=== PATIENT | female | born 1940 | race Caucasian/White ===

== ENCOUNTER 2019-02-20 06:48 | Day surgery (SDC) | payer OTHER ==
--- NOTE | 2019-02-19 14:50 | RAD REPORT ---
EXAM DESCRIPTION: RAD - Chest Pa And Lat (2 Views) - 02/19/2019 2:44 pm CLINICAL HISTORY: Preop chest, pending cardiac catheterization COMPARISON: January 2018 TECHNIQUE: PA and lateral views of the chest were obtained. FINDINGS: The lungs are clear of an acute infiltrate, mass or failure finding. Interstitial pattern matches the comparison. Heart size is normal and central vasculature is within normal limits. No p leural effusion or pneumothorax seen. No acute bone finding. A 40% compression fracture midthoracic spine matches the prior study as well. No aortic abnormality. IMPRESSION: No acute cardiopulmonary process. No significant change from comparison.
[2019-02-19 16:16] LABS: Absolute Lymphocytes (CBC) 1.5 K/uL (0.7-4.9); Absolute Monocytes 0.5 K/uL (0.1-1.3); Basophils % 0.6 % (0-1.3); Eosinophils % 1.5 % (0-4.4); Hematocrit 39.4 % (36.0-45.0); Lymphocytes % 21.1 % (15.3-44.8); MPV 10.3 fL (7.6-11.3); RBC Red Blood Cell Count 4.26 M/uL (3.86-4.86)
[2019-02-19 16:18] LABS: Protime INR 1.04
[2019-02-19 16:28] LABS: Potassium 3.7 mmol/L (3.5-5.1)
[2019-02-20] MEDS ORDERED: NA CHLORIDE 0.9% 500 ML ONE (07:32)
[2019-02-20] MEDS ORDERED: HEPA 1000U/500MLS 1,000 UNIT/500 ML BAG IV ONE (08:39)
[2019-02-20] MEDS ORDERED: LIDOCAINE 1% MPF 30 ML VIAL ONE (08:39)
[2019-02-20] MEDS ORDERED: MIDAZOLAM HCL 2 MG/2 ML INJ ONE ×2 (08:59→09:17)
[2019-02-20] MEDS ORDERED: FENTANYL CITR 100 MCG/2 ML ONE (08:59)
[2019-02-20] MEDS ORDERED: ATROPINE SULF 1 MG/10 ML SYR IV ONE (09:00)
[2019-02-20] MEDS ORDERED: NA CHLORIDE 0.9% 0 ML ONE (09:00)
[2019-02-20] MEDS ORDERED: NITROGLYCERIN 100 MCG/ML SYR (for cath lab use only) IV ONE (09:13)
[2019-02-20] MEDS ORDERED: NITROGLYCERIN/D5W 25 MG/250 ML BTL IV ONE (09:14)
[2019-02-20 10:05] VITALS: TEMP 97.1
[2019-02-20 11:38] VITALS: BP 144/75; O2SAT 97
--- NOTE | 2019-02-20 18:16 | OP ---
Surgeon: Marcelino Pitts MD Dish Technician: Renetta Garcia. History: Ms. Olvera is an 78-year-old woman, has a history of diabetes, hypertension, dyslipidemi a, family history of heart disease, chest pain, and abnormal EKG. Admitted as an outpatient to the c ath lab today, 02/20/2019. Procedures: Left heart catheterization selective coronary arteriogram. Indication: Unstable angina. Procedure Description: The patient was prepped and draped in the routine sterile fashion, given 2 mg of Versed for IV sedation. A 6-Azeri sheath introduced in the right common femoral artery. StarCl ose was used to close the case. Marialuisa catheter was used to do the angiogram angiography. She was found to have a normal LAD, and normal RCA which was small and nondominant. Her blood vessels were v doug tortuous everywhere. She had a 20% circumflex stenosis, which was a left dominant system. No co mplications. Blood Loss: 5 cc. Postoperative Diagnosis: Mild coronary artery disease. Plan: Medical therapy. Anesthesia: Total conscious sedation was 30 minutes. DEANNA/REINIER Voice ID: [id number] Report ID: [id number]
== END 2019-02-20 11:50 | disposition home health service (06) ==
LOC: CCL 06:48
DX: I25.110 Atherosclerotic heart disease of native coronary artery with unstable angina pectoris (principal); I10 Essential (primary) hypertension; E78.5 Hyperlipidemia, unspecified; E78.6 Lipoprotein deficiency; E11.9 Type 2 diabetes mellitus without complications; Z82.49 Family history of ischemic heart disease and other diseases of the circulatory system
CPT/HCPCS: 85025; 80048; 36415; 85610; 82962 ×2; 85730; 71046; 93454; C1893; J2250 ×2; J3010; J0583

== ENCOUNTER 2020-09-22 07:07 | Day surgery (SDC) | payer OTHER ==
--- NOTE | 2020-09-17 12:57 | RAD REPORT ---
EXAM DESCRIPTION: RAD - Chest Pa And Lat (2 Views) - 09/17/2020 12:50 pm CLINICAL HISTORY: preop Chest pain. COMPARISON: Chest Pa And Lat (2 Views) dated 02/19/2019; Chest Pa And Lat (2 Views) dated 01/17/2018; C hest Pa And Lat (2 Views) dated 03/24/2017; Chest Pa And Lat (2 Views) dated 02/24/2017 FINDINGS: The lungs are clear. The heart is upper limit of normal in size. No displaced fractures. IMPRESSION: No acute or concerning finding suspected.
[2020-09-17 13:08] LABS: Absolute Lymphocytes (CBC) 2.3 K/uL (0.7-4.9); Basophils % 0.8 % (0-1.3); Hematocrit 39.7 % (36.0-45.0); Lymphocytes % 27.6 % (15.3-44.8); MPV 9.7 fL (7.6-11.3); RBC Red Blood Cell Count 4.38 M/uL (3.86-4.86)
[2020-09-17 13:11] LABS: Protime INR 0.97
[2020-09-17 14:02] LABS: ALT/SGPT 29 U/L (12-78); AST/SGOT 19 U/L (15-37); Albumin 3.9 g/dL (3.4-5.0); Alkaline Phosphatase 98 U/L (45-117); Amylase 72 U/L (25-115); BUN Blood Urea Nitrogen 26 mg/dL (7-18); Bicarbonate 31 mmol/L (21-32); Bilirubin Direct < 0.1 mg/dL (0-0.2); Bilirubin Total 0.3 mg/dL (0.2-1.0); Glucose Level 82 mg/dL (74-106); Lipase 103 U/L (73-393); Potassium 4.1 mmol/L (3.5-5.1); Protein, Total 8.4 g/dL (6.4-8.2); Sodium Level 140 mmol/L (136-145)
--- NOTE | 2020-09-17 17:31 | EKG ---
Test Date: 2020-09-17 Test Time: 12:20:27 Petroleum Engineer: NELY MEASUREMENT RESULTS: Intervals: Rate: 76 HI: 242 QRSD: 74 QT: 398 QTc: 447 [place]: P: 78 HI: 242 QRS: 4 T: 22 INTERPRETIVE STATEMENTS: Sinus rhythm with 1st degree AV block Possible Inferior infarct, age undetermined Abnormal ECG Compared to ECG 01/13/2017 11:47:19 Myocardial infarct finding now present Electronically Signed On 09-17-20 17:31:16 LEGAL SECRETARY by Marcelino Pitts
[2020-09-22] MEDS ORDERED: FENTANYL CITR 100 MCG/2 ML ONE ×2 (07:39→09:28)
[2020-09-22] MEDS ORDERED: LIDOCAINE 2% MPF 5 ML VIAL ONE (07:39)
[2020-09-22] MEDS ORDERED: ROCURONIUM 50 MG/5 ML VIAL IV ONE (07:39)
[2020-09-22] MEDS ORDERED: dexAMETHasone 10 MG/ML VIAL ONE (07:39)
[2020-09-22] MEDS ORDERED: propofoL 200 MG/20 ML VIAL IV ONE (07:39)
[2020-09-22] MEDS ORDERED: ONDANSETRON 4 MG/2 ML VIAL ONE (07:40)
[2020-09-22] MEDS ORDERED: NA CHLORIDE 0.9% 1,000 ML ONE (07:46)
[2020-09-22] MEDS ORDERED: CEFAZOLIN/SWI 2gm 0 GM/0 ML SYR ONE (07:46)
[2020-09-22] MEDS ORDERED: SCOPOLAMINE HYDROBROMIDE PATCH TD ONE (07:47)
[2020-09-22] MEDS ORDERED: NA CHLORIDE 0.9% 100 ML IV ONE (08:00)
[2020-09-22] MEDS ORDERED: VASOPRESSIN 20 UNIT/ML VIAL ONE (08:00)
[2020-09-22] MEDS ORDERED: CEFAZOLIN/SWI 1gm 1 GM/10 ML SYR ONE (08:08)
[2020-09-22] MEDS ORDERED: CEFOXITIN/SWI 1gm 1 GM/10 ML SYR ONE (08:13)
[2020-09-22] MEDS ORDERED: CEFAZOLIN SODIUM 1 GM/VIAL ONE (08:43)
[2020-09-22] MEDS ORDERED: EPHEDRINE SULF 50 MG/ML VIAL ONE (09:12)
--- NOTE | 2020-09-22 10:02 | P.BOP ---
Preoperative diagnosis: RUQ abd pain, biliary dyskinesia Postoperative diagnosis: same plus umbilical hernia Primary procedure: 1. Laparoscopic cholecystectomy Secondary procedure: 2. Open repair umbilical hernia Estimated blood loss: <10cc Specimen: gb, hernia sac Findings: SEE Dr Lockhart note for her procedure Anesthesia: General Complications: None Transferred to: Recovery Room Condition: Good
[2020-09-22 10:22] VITALS: O2SAT 96
[2020-09-22] MEDS ORDERED: NORCO 5/325mg (4 TAB for ER Dispense) PO ONE (11:25)
[2020-09-22 11:36] VITALS: BP 136/65; TEMP 96.6
[2020-09-22] MEDS ORDERED: HYDROCODONE/APAP 5/325 MG TAB ONE (11:38)
--- NOTE | 2020-09-22 13:08 | OP ---
Date of Procedure: 09/22/2020 Surgeon: Sonido Apodaca MD Preoperative Diagnoses: Right upper quadrant abdominal pain, biliary dyskinesia. Postoperative Diagnoses: Right upper quadrant abdominal pain, biliary dyskinesia, umbilical hernia. Procedures: 1.Laparoscopic cholecystectomy. 2.Open repair of umbilical hernia. Anesthesia: General plus local. Specimen: Gallbladder and hernia sac. Findings: As above. The patient had distended gallbladder. The patient also has incarcerated oment um and hernia sac. Dr. Lockhart did the procedure this morning on her. Please refer to her note for details in that case. Indications For Procedure: This case of a female comes to us with 2 problems; one gynecological, one general surgery. Dr. Lockhart is taking care of the gynecological part. Please see her notes. For the surgical standpoint, the patient is having pain every time she eats and diagnosed with biliary d yskinesia. She is trying to modify her diet, has not been able to help, so she came to my office for cholecystectomy as advised also by her medical doctors, but at the same time she wants to have some procedure done with Dr. 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 I have no problems. Dr. Lockhart wants to go first. My part was explained to her laparoscopic possi ble open cholecystectomy with benefits, alternatives, and risks included but not limited to infection , bleeding, damage to adjacent structures as complication recurrence of pain, NM, even . She al so understands this may not relieve symptoms. She might need more than one surgical intervention. S he understood and signed a consent. Procedure In Detail: The patient was brought to the operating room. Dr. Lockhart proceeded to be in the room with . Please refer to notes. When Dr. Lockhart finished her procedure, then robin singer called me in the room. We did a time-out once again. We re-scrubbed everything again in the abd omen in the usual sterile fashion. A time-out was called once again and we proceeded then to make an incision in the umbilical region. Incision was carried down to fascia, which was opened under direc t vision. When we opened the fascia, we noted this patient to have an umbilical hernia with incarcer ated omentum that was carefully released from adhesions from the hernia sac and the hernia sac was re moved. At that moment, I put Vicryl #1 inside the fascia, Rosita trocar was carefully introduced, an d pneumoperitoneum was obtained. I placed 3 more trocars under direct visualization in the right upp er quadrant, 5 mm each one of them. I placed a grasper in the fundus of the gallbladder and another grasper in the infundibulum retracting the gallbladder in the inferolateral fashion exposing the tria ngle of Calot obtaining critical view. Cystic duct and cystic artery were clearly isolated free circ umferentially and a connection between those and the gallbladder was clearly identified. I proceeded to ligate those by using at least 3 clips proximal, 1 clip distal, and ligation in the middle. Same was done with the cystic artery. A small tiny branch of the cystic artery going to the gallbladder was carefully isolated and also ligated using the same technique. Hepatic arteries and common bile d uct were protected at all times. After that, I removed the gallbladder from liver using Bovie cauter izer and removed from the abdominal cavity using an EndoCatch through the umbilical incision. The ar ea was inspected once again. No bile leak, no bleeding. Previous clips were intact with no bleeding . At that moment, I proceeded to remove the trocars under direct vision and deflated the pneumoperit oneum. Closed the fascia and umbilical hernia with #1 Vicryl. Irrigated the subcutaneous tissue, cl osed that with 3-0 chromic and skin in a subcuticular fashion with 3-0 chromic and Steri-Strips on to p. Sponge count and instrument counts correct. The patient tolerated the procedure well. The patie nt was sent to Recovery in stable condition. HM/MODL Voice ID: [id number] Report ID: [id number]
--- NOTE | 2020-09-22 13:11 | DS ---
This discharge summary is from the General Surgery standpoint. Please refer to Dr. Lockhart's notes for the discharge instruction from the gynecological procedure. Discharge Instructions: From the general surgery standpoint, the patient was advised to keep the are a dry for 48 hours, then may shower. Keep Steri-Strips intact. Plan: Follow up in my office in 1 week. Call for appointment [phone]. Medications: Cipro 500 p.o. b.i.d. and also Tylenol No. 3 q.4 hours p.r.n. pain. Due to florin magana es, we have to do e-prescription for the narcotics and we are in the process of doing that. Keep are a dry for 48 hours, then may shower. FRNACINE/REINIER Voice ID: [id number] Report ID: [id number]
--- NOTE | 2020-09-27 02:17 | OP ---
Date of Procedure: 09/22/2020 Surgeon: Kay Lockhart MD Chef Assistant: Lizzy Brown. Preoperative Diagnosis: Overactive bladder, stress urinary incontinence. Postoperative Diagnosis: Overactive bladder, stress urinary incontinence. Procedures Performed: Mid urethral sling (TVT) cystoscopy. Anesthesia: General endotracheal. Specimens: None. Complications: None. Estimated Blood Loss: Minimal. Condition: Stable patient. Findings: Hypermobile urethra. No bladder stones or masses, stones, or diverticula on cystoscopy. No evidence of any trauma to the bladder either. There was an anterior wall and posterior wall defec ts to a small degree. Brief History And Physical: The patient is an 79-year-old patient, who has been my patient for a few years, has been treated for overactive bladder with conservative management, has done well for some years and then her stress urinary incontinence has gotten worse to the point that her incontinence is extremely bothersome to her. She has been clearly explained about the difference in overactive blad gerald and stress urinary incontinence, which came from her hypermobile urethra on urodynamic testing. This was documented and clearly explained to the patient and her multiple times to make sure that they understood that the stress part of the surgery is the only one that can be fixed with a mid urethral sling, that there could be also 50% of the time resolution or significant improvement in ov eractive bladder when stress incontinence is corrected; however, this is not a guarantee and that she would continue to need more treatments for her overactive bladder if her incontinence has not improv ed to her satisfactory level. She consented. We discussed about the alternative options of incontinence pessary, pelvic floor musc le therapy in combination with it or alone and she wanted to proceed with surgical repair. At this t [facility], patient also is undergoing laparoscopic cholecystectomy by Dr. Apodaca, so this was coordinated together, so I did the procedure first. Description Of Procedure: Patient was placed in a dorsal lithotomy position. Vulva, vagina, and per ineum were prepped and draped in a sterile fashion. Alonzo was placed in the bladder. 2 g of Ancef w ere given and Alonzo was retracted superiorly to identify the urethra in the mid urethral area. Two A llis clamps were placed and injected with dilute vasopressin in the center and on both sides. Patien t was placed in high lithotomy position. 1 cm mid urethral incision made with the help of a 15 blade and dissection was carried underneath the connective tissue pointing at the ipsilateral shoulder tow ards the ipsilateral obturator space hugging the inferior pubic ramus at a 40-degree angle to the hor izontal and vertical planes. Once I got into the membrane and perforated it, track was created as th e scissors were pulled back. Similar dissection performed on the left side as well. The wing guide was placed and the plastic dilator with the spike inside were guided through to the obturator membran e and perforating through this. Needle was hugged along the inferior pubic ramus and exited 1 cm lat eral to the groin fold about 2 cm superior to the level of the horizontal line dropped at the level o f the external urethral meatus. Then, I was able to bring the spike out. Plastic dilator pulled out . Plastic sheath and mesh were held with a Carmen and dilator was cut. Then, opposite side pass was taken with the wing guide, passed into the obturator space, and guide removed and dilator passed and exited to the point symmetric to the opposite side. The plastic dilator was cut out and the mesh and graft were held with a Carmen in the mid urethral area. This was irrigated with antibiotic solution and sling tension with the help of the scissors in the midline. Then, sheath was pulled out and mesh was left in place. Excellent tensioning was present. Thorough irrigation was performed. Then, ja sure with 3-0 Vicryl in a continuous running locked fashion in the mid urethral area. Then, the skin incisions closed with the help of skin clips. Alonzo was removed. Cystoscopy was performed with a 1 7-Pashto sheath, 30-degree lens, and normal saline. Excellent jets of urine from both ureteric orifi les area of the trigone area above the trigone and down the lateral chandra were all well visualized. No evidence of any tumors, diverticula, or stones. There was no evidence of any trauma from the mike t and there was no foreign body in the bladder. The urethroscopy was performed and once all the blad gerald was drained, Alonzo was left in place and all the patient's legs were anesthetized. All the drape s were removed. Instrument, needle, and sponge counts were correct. EBL was minimal. Patient rod ated the procedure well. She was left anesthetized for Dr. Paulie's to continue his procedure afte r prepping the abdomen again and repositioning the patient in a supine fashion. She will get bladder voiding trial and will be discharged home after that. TONY Voice ID: [id number] Report ID: [id number]
== END 2020-09-22 13:50 | disposition home or self-care (01) ==
LOC: OR 07:07
PROVIDERS: ATTEND Surgery
PROC: 0TSD0ZZ Reposition Urethra, Open Approach (ICD-10-PCS; 2020-09-22)
PROC: 0FT44ZZ Resection of Gallbladder, Percutaneous Endoscopic Approach (ICD-10-PCS; principal; 2020-09-22 08:00)
PROC: 0WQF4ZZ Repair Abdominal Wall, Percutaneous Endoscopic Approach (ICD-10-PCS; 2020-09-22 08:00)
DX: K81.1 Chronic cholecystitis (principal); K42.9 Umbilical hernia without obstruction or gangrene; N39.3 Stress incontinence (female) (male); N32.81 Overactive bladder; Z20.822 Contact with and (suspected) exposure to COVID-19
CPT/HCPCS: 47562; 49653; 93005; 85025; 80048; 36415; 82150; 86900; 86850; 85610; 86901; 82947 ×2; 80076; 88302; 88304; 85730; 83690; 71046; 57288; U0002; J2704; J3010 ×2; J1100; J0690 ×2; J7030; J2405

== ENCOUNTER 2021-02-22 10:53 | Emergency (ER) | payer OTHER ==
[2021-02-22] MEDS ORDERED: ONDANSETRON 4 MG/2 ML VIAL ONE (11:28)
[2021-02-22] MEDS ORDERED: NA CHLORIDE 0.9% 500 ML ONE (11:28)
[2021-02-22 11:44] LABS: Basophils % 0.6 % (0-1.3); MPV 9.9 fL (7.6-11.3); RBC Red Blood Cell Count 4.51 M/uL (3.86-4.86)
[2021-02-22 11:58] LABS: Albumin 3.5 g/dL (3.4-5.0); Bilirubin Direct 0.1 mg/dL (0-0.2); Bilirubin Total 0.5 mg/dL (0.2-1.0); Potassium 3.7 mmol/L (3.5-5.1); Protein, Total 7.7 g/dL (6.4-8.2)
--- NOTE | 2021-02-22 12:54 | RAD REPORT ---
EXAM DESCRIPTION: CTAbdomen Pelvis W Contrast - 02/22/2021 12:28 pm CLINICAL HISTORY: Abdominal pain. ABD PAIN COMPARISON: Abdomen Pelvis W Contrast dated 11/21/2017 TECHNIQUE: Biphasic CT imaging of the abdomen and pelvis was performed with 100 ml non-ionic IV cont rast. All CT scans are performed using dose optimization technique as appropriate and may include automated exposure control or mA/KV adjustment according to patient size. FINDINGS: The lung bases are clear.Small hiatal hernia. Mild diffuse fatty liver is present. Cholecystectomy clips. The spleen, pancreas, adrenal glands and kidneys are within normal limits. No bowel obstruction, free air, free fluid or abscess. Sigmoid diverticulosis coli is present without diverticulitis. The appendix is not identified as a discrete structure, however, no secondary findin gs of appendicitis are identified. No evidence of significant lymphadenopathy. No suspicious bony findings. IMPRESSION: No acute intra-abdominal or pelvic finding. Mild diffuse fatty liver. Prominent sigmoid diverticulosis coli without diverticulitis.
--- NOTE | 2021-02-22 13:14 | ER ---
Nurse's Notes [facility] Name: Maryann Olvera Age: 80 yrs Sex: Female : 1940 Arrival Date: 02/22/2021 Time: 11:00 Bed 8 Private MD: Diagnosis: Generalized abdominal pain Presentation: 02/22 10:51 Initial Sepsis Screen: Does the patient meet any 2 criteria? No. Patient's initial rb3 sepsis screen is negative. Does the patient have a suspected source of infection? Yes: Acute abdominal pain. Risk Assessment: Do you want to hurt yourself or someone else? Patient reports no desire to harm self or others. 10:51 Acuity: AMINA 3 rb3 11:00 Chief complaint: Patient states: Abd with N/V continues since last night. Has been ll1 seeing Dr. Dc for this recently. No fever. EMS states: Initial BP 95 systolic, raised to 116 systolic after IV fluid bolus. + orthostatic. Fingerstick 233. No fever. Family reported an episode of twitching/possible seizure that lasted a few minutes before EMS arrived, EMS saw no twitching/shaking. EKG showed 1st degree AV block. Pinpoint pupils for EMS. States she took her pain medication last night, but vomited afterwards. Coronavirus screen: Client denies travel out of the [place] in the last 14 days. At this time, the client does not indicate any symptoms associated with coronavirus-19. Ebola Screen: Patient denies travel to an Ebola-affected area in the 21 days before illness onset. Risk Assessment: Do you want to hurt yourself or someone else? Patient reports no desire to harm self or others. Onset of symptoms was February 21, 2021. 11:00 Method Of Arrival: EMS: [facility] ll1 11:00 Acuity: AMINA 3 ll1 Historical: - Allergies: 11:05 exenatide; ll1 11:05 PENICILLINS; ll1 11:05 sitagliptin phosphate; ll1 - PMHx: 11:05 Diabetes - NIDDM; Hyperlipidemia; Hypertension; ll1 - PSHx: 11:05 Unable to obtain; ll1 - Immunization history:: Adult Immunizations up to date. - Social history:: Smoking status: Patient denies any tobacco usage or history of. Screenin:51 Abuse screen: Denies threats or abuse. Nutritional screening: No deficits noted. rb3 Tuberculosis screening: No symptoms or risk factors identified. Fall Risk None identified. Assessment: 10:51 General: Appears in no apparent distress. comfortable, Behavior is calm, cooperative, rb3 Denies fever. Pain: Denies pain. Neuro: Level of Consciousness is awake, alert, obeys commands, Oriented to person, place, time, situation. Cardiovascular: Patient's skin is warm and dry. Respiratory: Airway is patent Respiratory effort is even, unlabored, Respiratory pattern is regular, symmetrical. GI: Reports nausea, vomiting. : No signs and/or symptoms were reported regarding the genitourinary system. 10:51 GI: Abd is soft X 4 quads. rb3 11:50 Reassessment: Patient appears in no apparent distress at this time. No changes from rb3 previously documented assessment. 13:23 Reassessment: Patient appears in no apparent distress at this time. Patient and/or rb3 family updated on plan of care and expected duration. Pain level reassessed. Patient is alert, oriented x 3, equal unlabored respirations, skin warm/dry/pink. 13:45 Reassessment: PT. tolerated PO challenge well. rb3 14:00 Reassessment: Patient appears in no apparent distress at this time. No changes from rb3 previously documented assessment. Vital Signs: 10:51 BP 114 / 70; Pulse 84; Resp 17; Temp 98.0; Pulse Ox 100% ; Weight 71.21 kg; Height 5 rb3 ft. 3 in. (160.02 cm); Pain 0/10; 12:27 BP 112 / 57; Pulse 86; Resp 16; Temp 98.1(O); Pulse Ox 98% on R/A; mh5 13:23 BP 155 / 89; Pulse 90; Resp 17; Pulse Ox 98% ; rb3 14:00 BP 148 / 85; Pulse 83; Resp 17; Pulse Ox 99% ; rb3 10:51 Body Mass Index 27.81 (71.21 kg, 160.02 cm) rb3 ED Course: 10:51 Patient has correct armband on for positive identification. Bed in low position. Call rb3 light in reach. Side rails up X 1. Pulse ox on. NIBP on. Warm blanket given. 11:00 Patient arrived in ED. ll1 11:01 Geeta Gerard FNP-C is [facility]. kb 11:01 Mason Young MD is Attending Physician. kb 11:03 Maria D Woody, RN is Primary Nurse. rb3 11:04 Triage completed. ll1 11:04 Arm band placed on Patient placed in an exam room, on a stretcher. ll1 11:15 Maintain EMS IV. Dressing intact. Good blood return noted. Site clean \T\ dry. Gauge \T\ rb 3 site: 20 G RA. 12:28 CT Abd/Pelvis - IV Contrast Only In Process Unspecified. EDMS 14:25 No provider procedures requiring assistance completed. IV discontinued, intact, rb3 bleeding controlled, No redness/swelling at site. Pressure dressing applied. Administered Medications: 11:10 Drug: NS 0.9% 500 ml Route: IV; Rate: bolus; Site: right antecubital; rb3 11:44 Follow up: IV Status: Completed infusion rb3 16:23 Not Given (Patient Refused): Zofran (Ondansetron) 4 mg IVP once; over 2 minutes rb3 Outcome: 13:13 Discharge ordered by MD. kb 14:25 Patient left the ED. rb3 14:25 Discharged to home via wheelchair, with family. rb3 14:25 Condition: stable 14:25 Discharge instructions given to patient, Instructed on discharge instructions, follow up and referral plans. medication usage, Demonstrated understanding of instructions, follow-up care, medications, Prescriptions given X 2. Signatures: Dispatcher [employer] EDSC Geeta Gerard FNP-C FNP-Ckb Martinez, Maria [facility] Lucy Barrera RN RN ll1 Mari aD Woody, RN RN rb3
--- NOTE | 2021-02-22 13:14 | EDPHYS ---
Physician Documentation [facility] Name: Maryann Olvera Age: 80 yrs Sex: Female : 1940 Arrival Date: 02/22/2021 Time: 11:00 Bed 8 Private MD: ED Physician Mason Young HPI: 02/22 11:17 This 80 yrs old Female presents to ER via EMS with complaints of Abd Pain > kb 48 y/o. 11:17 The patient presents with abdominal pain in the right upper quadrant, right lower kb quadrant. Onset: The symptoms/episode began/occurred "several weeks ago". The symptoms do not radiate. Associated signs and symptoms: Pertinent positives: nausea and vomiting, Pertinent negatives: diarrhea, fever. The symptoms are described as constant. Modifying factors: The symptoms are alleviated by nothing, the symptoms are aggravated by nothing. Severity of pain: At its worst the pain was mild moderate in the emergency department the pain has resolved. The patient has experienced similar episodes in the past, chronically. The patient has not recently seen a physician. Pt reports she has had right abd pain for several weeks. Has had multiple tests including a CT scan with normal results. Has been seeing Dr Dc for this and the next test planned is an endoscopy. States she began vomiting last night and it continued this morning so that is what prompted today's visit. States she has had intermittent vomiting with this pain in the past. Pain resolved at this time. . Historical: - Allergies: 11:05 exenatide; ll1 11:05 PENICILLINS; ll1 11:05 sitagliptin phosphate; ll1 - PMHx: 11:05 Diabetes - NIDDM; Hyperlipidemia; Hypertension; ll1 - PSHx: 11:05 Unable to obtain; ll1 - Immunization history:: Adult Immunizations up to date. - Social history:: Smoking status: Patient denies any tobacco usage or history of. ROS: 11:16 Constitutional: Negative for fever, chills, and weight loss. kb 11:16 Abdomen/GI: Positive for abdominal pain, nausea and vomiting. 11:16 All other systems are negative. Exam: 11:16 Constitutional: This is a well developed, well nourished patient who is awake, alert, kb and in no acute distress. Head/Face: Normocephalic, atraumatic. ENT: Moist Mucous membranes Respiratory: Respirations even and unlabored. No increased work of breathing, no retractions or nasal flaring. Abdomen/GI: Soft, non-tender. No distention Skin: Warm, dry with normal turgor. Normal color. MS/ Extremity: Pulses equal, no cyanosis. Neurovascular intact. Full, normal range of motion. Neuro: Awake and alert, GCS 15, oriented to person, place, time, and situation. Moves all extremities. Normal gait. Psych: Awake, alert, with orientation to person, place and time. Behavior, mood, and affect are within normal limits. Vital Signs: 10:51 BP 114 / 70; Pulse 84; Resp 17; Temp 98.0; Pulse Ox 100% ; Weight 71.21 kg; Height 5 rb3 ft. 3 in. (160.02 cm); Pain 0/10; 12:27 BP 112 / 57; Pulse 86; Resp 16; Temp 98.1(O); Pulse Ox 98% on R/A; mh5 13:23 BP 155 / 89; Pulse 90; Resp 17; Pulse Ox 98% ; rb3 14:00 BP 148 / 85; Pulse 83; Resp 17; Pulse Ox 99% ; rb3 10:51 Body Mass Index 27.81 (71.21 kg, 160.02 cm) rb3 MDM: 11:01 Patient medically screened. kb 11:16 Data reviewed: vital signs, nurses notes. Data interpreted: Pulse oximetry: on room air kb is 100 %. Interpretation: normal. 13:13 Counseling: I had a detailed discussion with the patient and/or guardian regarding: the kb historical points, exam findings, and any diagnostic results supporting the discharge/admit diagnosis, lab results, radiology results, the need for outpatient follow up, a family practitioner, a user experience manager, to return to the emergency department if symptoms worsen or persist or if there are any questions or concerns that arise at home. 02/22 11:01 Order name: Basic Metabolic Panel; Complete Time: 12:01 kb 02/22 11:01 Order name: CBC with Diff; Complete Time: 11:46 kb 02/22 11:01 Order name: Hepatic Function; Complete Time: 12:01 kb 02/22 11:01 Order name: Lipase; Complete Time: 12:01 kb 02/22 12:10 Order name: CT Abd/Pelvis - IV Contrast Only; Complete Time: 12:57 kb 02/22 11:01 Order name: IV Saline Lock; Complete Time: 11:15 kb 02/22 11:01 Order name: Labs collected and sent; Complete Time: 11:31 kb 02/22 12:57 Order name: PO challenge; Complete Time: 13:21 kb Administered Medications: 11:10 Drug: NS 0.9% 500 ml Route: IV; Rate: bolus; Site: right antecubital; rb3 11:44 Follow up: IV Status: Completed infusion rb3 16:23 Not Given (Patient Refused): Zofran (Ondansetron) 4 mg IVP once; over 2 minutes rb3 Disposition: 15:18 Co-signature as Attending Physician, Mason Young MD. rn Disposition: 02/22/21 13:13 Discharged to Home. Impression: Generalized abdominal pain. - Condition is Stable. - Discharge Instructions: Abdominal Pain, Adult, [id number]. - Prescriptions for Bentyl 20 mg Oral Tablet - take 1 tablet by ORAL route every 6 hours As needed; 20 tablet. Zofran 4 mg Oral Tablet - take 1 tablet by ORAL route every 6 hours As needed; 20 tablet. - Medication Reconciliation Form, Thank You Letter, Antibiotic Education, Prescription Opioid Use form. - Follow up: Emergency Department; When: As needed; Reason: Worsening of condition. Follow up: Private Physician; When: 2 - 3 days; Reason: Recheck today's complaints, Continuance of care, Re-evaluation by your physician. Signatures: Dispatcher [employer] EDTN Geeta Gerard, CRYPTOZOOLOGIST-C CRYPTOZOOLOGIST-Ckb Mason Young MD MD rn Lewis, Lynsay, RN RN ll1 Maria D Woody RN RN rb3 Corrections: (The following items were deleted from the chart) 14:25 13:13 02/22/2021 13:13 Discharged to Home. Impression: Generalized abdominal pain. rb3 Condition is Stable. Forms are Medication Reconciliation Form, Thank You Letter, Antibiotic Education, Prescription Opioid Use. Follow up: Emergency Department; When: As needed; Reason: Worsening of condition. Follow up: Private Physician; When: 2 - 3 days; Reason: Recheck today's complaints, Continuance of care, Re-evaluation by your physician. kb
[2021-02-22 14:29] VITALS: TEMP 98.1; O2SAT 98
[2021-02-22 14:30] VITALS: BP 155/89
== END 2021-02-22 14:25 | disposition home or self-care (01) ==
LOC: ER 10:53
DX: R10.84 Generalized abdominal pain (principal); I10 Essential (primary) hypertension; Z88.0 Allergy status to penicillin; Z88.8 Allergy status to other drugs, medicaments and biological substances
CPT/HCPCS: 85025; 80048; 36415; 80076; 83690; 74177; Q9967; J7040; 96360; 99284; J2405

== ENCOUNTER 2022-03-25 14:32 | Observation (INO) | payer OTHER ==
[2022-03-25 15:07] LABS: Absolute Lymphocytes (CBC) 0.6 K/uL (0.7-4.9); Hematocrit 39.8 % (36.0-45.0); Lymphocytes % 7.3 % (15.3-44.8); MCV 91.9 fL (80-100); MPV 8.5 fL (7.6-11.3); RBC Red Blood Cell Count 4.33 M/uL (3.86-4.86)
[2022-03-25 15:10] LABS: Protime INR 1.09
--- NOTE | 2022-03-25 15:19 | RAD REPORT ---
EXAM DESCRIPTION: RAD - Chest Single View - 03/25/2022 3:11 pm CLINICAL HISTORY: syncope Chest pain. COMPARISON: Chest Pa And Lat (2 Views) dated 09/17/2020; Chest Pa And Lat (2 Views) dated 02/19/2019; C hest Pa And Lat (2 Views) dated 01/17/2018; Chest Pa And Lat (2 Views) dated 03/24/2017 FINDINGS: Portable technique limits examination quality. The lungs are grossly clear. The heart is normal in size. No displaced fractures. IMPRESSION: No acute intrathoracic process suspected.
[2022-03-25 15:29] LABS: Albumin 3.3 g/dL (3.4-5.0); Bilirubin Direct 0.1 mg/dL (0-0.2); Bilirubin Total 0.3 mg/dL (0.2-1.0); Magnesium 1.9 mg/dL (1.8-2.4); Potassium 4.1 mmol/L (3.5-5.1); Protein, Total 6.8 g/dL (6.4-8.2); Troponin High Sensitivity 11.6 pg/mL (<58.9)
[2022-03-25] MEDS ORDERED: NA CHLORIDE 0.9% 250 ML ONE (16:28)
--- NOTE | 2022-03-25 17:54 | RAD REPORT ---
EXAM DESCRIPTION: CT - Head Brain Wo Cont - 03/25/2022 5:47 pm CLINICAL HISTORY: syncope Headache, drowsiness COMPARISON: SINUS W O CONTRAST dated 09/24/2014 TECHNIQUE: All CT scans are performed using dose optimization technique as appropriate and may inclu de automated exposure control or mA/KV adjustment according to patient size. FINDINGS: No intracranial hemorrhage, hydrocephalus or extra-axial fluid collection.Mild generalized brain atrophy is present with mild periventricular and deep white matter chronic microvascular ische kalina changes.No areas of brain edema or evidence of midline shift. The paranasal sinuses and mastoids are clear. The calvarium is intact. Mild vertebral atherosclerosis . IMPRESSION: No acute intracranial abnormality.
--- NOTE | 2022-03-25 18:19 | EDPHYS ---
Physician Documentation [facility] Name: Maryann Olvera Age: 81 yrs Sex: Female : 1940 Arrival Date: 03/25/2022 Time: 14:34 Bed 23 Private MD: ED Physician Humza Daugherty HPI: 03/25 14:40 This 81 yrs old Female presents to ER via EMS with complaints of Syncope. cp 14:40 The patient has experienced syncope, collapsed. Onset: The symptoms/episode cp began/occurred just prior to arrival. Duration: This was a single episode, that lasted an unknown period of time. Context: occurred at home, occurred while the patient was walking, Just prior to the episode the patient experienced vomiting. 14:40 Associated injury: The patient did not suffer any apparent associated injury. cp 14:40 Associated signs and symptoms: Pertinent negatives: abdominal pain, chest pain, cp headache. Current symptoms: Currently, the patient is not experiencing any symptoms, the patient feels back to baseline. Historical: - Allergies: 14:39 exenatide; bp 14:39 PENICILLINS; bp 14:39 sitagliptin phosphate; bp - Home Meds: 14:39 Metformin Oral [Active]; losartan oral [Active]; bp - PMHx: 14:39 Diabetes - NIDDM; Hyperlipidemia; Hypertension; bp - Immunization history:: Adult Immunizations up to date. - Social history:: Smoking status: Patient denies any tobacco usage or history of. ROS: 14:45 Constitutional: Negative for body aches, chills, fever, poor PO intake. cp 14:45 Cardiovascular: Negative for chest pain, edema, palpitations. cp 14:45 Respiratory: Negative for cough, shortness of breath, wheezing. 14:45 Abdomen/GI: Positive for nausea and vomiting, Negative for diarrhea, constipation, black/tarry stool, rectal bleeding. 14:45 Neuro: Positive for syncope, weakness, Negative for altered mental status, dizziness, headache. 14:45 Eyes: Negative for injury, pain, redness, and discharge. cp 14:45 ENT: Negative for drainage from ear(s), ear pain, sore throat, difficulty swallowing, difficulty handling secretions. 14:45 All other systems are negative. cp Exam: 14:50 Constitutional: The patient appears in no acute distress, alert, awake, cp non-diaphoretic, non-toxic, well developed, well nourished. 14:50 Head/Face: Normocephalic, atraumatic. cp 14:50 Eyes: Periorbital structures: appear normal, Pupils: equal, round, and reactive to light and accomodation, Extraocular movements: intact throughout, Conjunctiva: normal, no exudate, no injection, Sclera: no appreciated abnormality, Lids and lashes: appear normal, bilaterally. 14:50 ENT: External ear(s): are unremarkable, Nose: is normal, Mouth: Lips: moist, Oral mucosa: pink and intact, moist, Posterior pharynx: Airway: no evidence of obstruction, patent. 14:50 Neck: ROM/movement: is normal, is supple, without pain, no range of motions limitations. 14:50 Chest/axilla: Inspection: normal, Palpation: is normal, no crepitus, no tenderness. cp 14:50 Cardiovascular: Rate: normal, Rhythm: regular, Edema: is not appreciated, JVD: is not cp appreciated. 14:50 Respiratory: the patient does not display signs of respiratory distress, Respirations: normal, no use of accessory muscles, no retractions, labored breathing, is not present, Breath sounds: are clear throughout, no decreased breath sounds, no stridor, no wheezing. 14:50 Abdomen/GI: Inspection: abdomen appears normal, Bowel sounds: active, all quadrants, Palpation: abdomen is soft and non-tender, in all quadrants. 14:50 Back: pain, is absent, ROM is normal. 14:50 Neuro: Orientation: to person, place \\T\\ time. Mentation: is normal, Motor: moves all fours, strength is normal, Sensation: is normal. 15:30 ECG was reviewed by the Attending Physician. cp Vital Signs: 14:34 BP 128 / 86; Pulse 92; Resp 16; Temp 98.6; Pulse Ox 97% ; bp 15:24 BP 127 / 46; Pulse 100; Resp 16; Pulse Ox 94% ; bp 16:27 Pulse 100; Resp 17; Pulse Ox 92% ; bp 16:27 PT REFUSED BP MEASUREMENT "IT'S TOO TIGHT" bp MDM: 14:41 Patient medically screened. cp 15:00 Differential Diagnosis: aortic aneurysm, cardiac arrhythmia, cerebrovascular accident, cp drug effect, GI bleed, idiopathic syncope, seizure, vasovagal episode. 18:15 Data reviewed: vital signs, nurses notes, lab test result(s), EKG, radiologic studies, cp CT scan, plain films. 18:15 Test interpretation: by ED physician or midlevel provider: ECG, plain radiologic cp studies. Counseling: I had a detailed discussion with the patient and/or guardian regarding: the historical points, exam findings, and any diagnostic results supporting the discharge/admit diagnosis, lab results, radiology results, the need for further work-up and treatment in the hospital. 18:30 Physician consultation: Mitchell Shrestha MD was called at 18:31, left message on voicemail. 03/25 14:36 Order name: Basic Metabolic Panel; Complete Time: 16:02 03/25 16:02 Interpretation: Normal except: GLUC 139; BUN 24; GFR 45. 03/25 14:36 Order name: CBC with Diff; Complete Time: 15:29 cp 03/25 15:29 Interpretation: Normal except: NICHOLAS% 84.0; LYM% 7.3; LYMA 0.6. 03/25 14:36 Order name: LFT's; Complete Time: 16:02 cp 03/25 16:03 Interpretation: Normal except: ALB 3.3; A/G 0.9. 03/25 14:36 Order name: Magnesium; Complete Time: 16:02 cp 03/25 14:36 Order name: NT PRO-BNP; Complete Time: 16:02 cp 03/25 14:36 Order name: PT-INR; Complete Time: 15:29 cp 03/25 14:36 Order name: Troponin HS; Complete Time: 16:02 cp 03/25 14:36 Order name: Urine Microscopic Only cp 03/25 19:37 Order name: COVID-19 SARS RT PCR (Document "Date of Onset" if Symptomatic); Complete cp Time: 23:55 03/25 23:55 Interpretation: Reviewed. 03/25 20:00 Order name: Basic Metabolic Panel EDMS 03/25 20:00 Order name: Basic Metabolic Panel EDCA 03/25 20:00 Order name: CBC with Automated Diff EDMS 03/25 20:00 Order name: CBC with Automated Diff EDCA 03/25 20:00 Order name: Troponin High Sensitivity EDCA 03/25 14:36 Order name: XRAY Chest (1 view); Complete Time: 15:29 cp 03/25 14:36 Order name: EKG; Complete Time: 14:36 cp 03/25 14:36 Order name: Cardiac monitoring; Complete Time: 16:17 cp 03/25 14:36 Order name: EKG - Nurse/Tech; Complete Time: 16:17 cp 03/25 16:13 Order name: CT Head Brain wo Cont; Complete Time: 18:06 cp 03/25 18:06 Interpretation: Report reviewed. 03/25 18:48 Order name: Diet Regular; Complete Time: 18:48 cp 03/25 20:00 Order name: Echo with Doppler EDMS 03/25 20:00 Order name: EKG Electrocardiogram EDMS 03/25 20:00 Order name: EKG Electrocardiogram EDMS 03/25 20:00 Order name: EKG Electrocardiogram EDMS 03/25 20:00 Order name: EKG Electrocardiogram EDMS 03/25 20:00 Order name: Troponin High Sensitivity; Complete Time: 23:55 EDMS 03/25 20:00 Order name: Troponin High Sensitivity EDMS 03/25 20:00 Order name: Troponin High Sensitivity EDMS 03/25 21:23 Order name: Urine Dipstick-Ancillary; Complete Time: 23:55 EDMS 03/25 14:36 Order name: IV Saline Lock; Complete Time: 14:42 cp 03/25 14:36 Order name: Labs collected and sent; Complete Time: 14:55 cp 03/25 14:36 Order name: O2 Per Protocol; Complete Time: 14:42 cp 03/25 14:36 Order name: O2 Sat Monitoring; Complete Time: 14:42 03/25 14:36 Order name: Urine Dipstick-Ancillary (obtain specimen); Complete Time: 03:29 cp 03/25 18:14 Order name: Cath; Complete Time: 03:29 cp EC:30 Rate is 98 beats/min. Rhythm is regular. CA interval is prolonged at 234 msec. QRS cp interval is normal. QT interval is normal. Interpreted by me. Reviewed by me. Administered Medications: 16:27 Drug: NS 0.9% 250 ml Route: IV; Rate: bolus; Site: right forearm; bp Disposition: 03/26 16:02 Attestation: The patient's history, exam findings, diagnostics, and a summary of any [facility] interventions or procedures was reviewed in detail with Ye ORNELAS. Disposition Summary: 03/25/22 18:18 Hospitalization Ordered Hospitalization Status: Observation cp Condition: Stable cp Problem: new cp Symptoms: have improved cp Bed/Room Type: Standard cp Provider: Mitchell Shrestha(03/25/22 18:29) cp Location: [facility] ER HOLD(03/25/22 23:52) tw5 Room Assignment: ERHOLD-(03/25/22 23:52) tw5 Diagnosis - Syncope cp - SARS-associated coronavirus as the cause of diseases classified elsewhere cp Forms: - Medication Reconciliation Form cp - SBAR form cp Signatures: Dispatcher [employer] EDMS Ye Terrell PA PA cp Jared Vicente RN RN Anyi Aiken tw5 Humza Daugherty MD MD [id number] Corrections: (The following items were deleted from the chart) 03/25 18:29 18:18 Alysha Chase cp cp 23:52 18:18 Telemetry/MedSurg (observation) [facility] 23:52 18:18 cp 5
--- NOTE | 2022-03-25 18:19 | ER ---
Nurse's Notes [facility] Name: Maryann Olvera Age: 81 yrs Sex: Female : 1940 Arrival Date: 03/25/2022 Time: 14:34 Bed 23 Private MD: Diagnosis: Syncope;SARS-associated coronavirus as the cause of diseases classified elsewhere Presentation: 03/25 14:34 Chief complaint: EMS states: SYNCOPE WITH FALL AND N/V AFTER BOWEL MOVEMENT. bp Coronavirus screen: At this time, the client does not indicate any symptoms associated with coronavirus-19. Ebola Screen: No symptoms or risks identified at this time. Initial Sepsis Screen: Does the patient meet any 2 criteria? No. Patient's initial sepsis screen is negative. Does the patient have a suspected source of infection? No. Patient's initial sepsis screen is negative. Risk Assessment: Do you want to hurt yourself or someone else? Patient reports no desire to harm self or others. Onset of symptoms was March 25, 2022 at 14:00. Care prior to arrival: IV initiated. 20 GA, in the right antecubital area, Glucose check: 114. 14:34 Method Of Arrival: EMS: [facility] bp 14:34 Acuity: AMINA 3 bp Triage Assessment: 14:39 General: Appears distressed, uncomfortable, Behavior is cooperative, appropriate for bp age, anxious. Pain: Denies pain. EENT: No deficits noted. Neuro: Reports a syncopal episode. Cardiovascular: No deficits noted. Respiratory: No deficits noted. GI: No signs and/or symptoms were reported involving the gastrointestinal system. : No signs and/or symptoms were reported regarding the genitourinary system. Derm: No deficits noted. Musculoskeletal: No deficits noted. Historical: - Allergies: 14:39 exenatide; bp 14:39 PENICILLINS; bp 14:39 sitagliptin phosphate; bp - Home Meds: 14:39 Metformin Oral [Active]; losartan oral [Active]; bp - PMHx: 14:39 Diabetes - NIDDM; Hyperlipidemia; Hypertension; bp - Immunization history:: Adult Immunizations up to date. - Social history:: Smoking status: Patient denies any tobacco usage or history of. Screenin:41 Abuse screen: Denies threats or abuse. Denies injuries from another. Nutritional bp screening: No deficits noted. Tuberculosis screening: No symptoms or risk factors identified. Fall Risk None identified. Assessment: 14:41 General: SEE TRIAGE NOTE. bp 15:24 Reassessment: No changes from previously documented assessment. Patient and/or family bp updated on plan of care and expected duration. Pain level reassessed. Vital Signs: 14:34 BP 128 / 86; Pulse 92; Resp 16; Temp 98.6; Pulse Ox 97% ; bp 15:24 BP 127 / 46; Pulse 100; Resp 16; Pulse Ox 94% ; bp 16:27 Pulse 100; Resp 17; Pulse Ox 92% ; bp 16:27 PT REFUSED BP MEASUREMENT "IT'S TOO TIGHT" bp ED Course: 14:34 Patient arrived in ED. bp 14:35 Ye Terrell PA is PHCP. cp 14:35 Humza Daugherty MD is Attending Physician. cp 14:35 Triage completed. bp 14:41 Arm band placed on. bp 14:41 Patient has correct armband on for positive identification. Bed in low position. Call bp light in reach. Side rails up X2. Adult w/ patient. 14:41 Maintain EMS IV. Dressing intact. Good blood return noted. Site clean \\T\\ dry. Gauge \\T\\ bp site: 20 GAUGE R AC. 14:55 Jared Vicente, RN is Primary Nurse. bp 15:13 XRAY Chest (1 view) In Process Unspecified. EDMS 17:48 CT Head Brain wo Cont In Process Unspecified. EDMS 18:17 Alysha Chase PA is Hospitalizing Provider. cp 18:29 Mitchell Shrestha MD is Hospitalizing Provider. cp Administered Medications: 16:27 Drug: NS 0.9% 250 ml Route: IV; Rate: bolus; Site: right forearm; bp Medication: 14:41 VIS not applicable for this client. bp Outcome: 18:18 Decision to Hospitalize by Provider. cp 03/26 10:12 Patient left the ED. jd3 Signatures: Dispatcher [employer] EDMS Ye Terrell PA PA cp Davies, Jonathon, RN RN jd3 Jared Vicente, TRUNG RN bp
[2022-03-25] MEDS ORDERED: ONDANSETRON 4 MG/2 ML VIAL IV PRN (19:56)
[2022-03-25] MEDS ORDERED: ACETAMINOPHEN 500 MG TAB PO PRN (19:56)
[2022-03-25 21:22] LABS: Urine Blood Negative (Negative); Urine Glucose Negative (Negative); Urine Protein Negative (Negative); Urine Specific Gravity 1.025 (1.005-1.030)
[2022-03-25] MEDS ORDERED: NA CHLORIDE 0.9% 1,000 ML ONE (21:44)
[2022-03-26 03:49] VITALS: O2SAT 100
[2022-03-26 05:14] LABS: Absolute Lymphocytes (CBC) 1.2 K/uL (0.7-4.9); Hematocrit 37.1 % (36.0-45.0); Lymphocytes % 20.4 % (15.3-44.8); MCV 91.6 fL (80-100); MPV 8.9 fL (7.6-11.3); RBC Red Blood Cell Count 4.05 M/uL (3.86-4.86)
[2022-03-26 05:31] LABS: Potassium 3.7 mmol/L (3.5-5.1)
[2022-03-26] MEDS ORDERED: ASPIRIN EC 81 MG TAB PO SCH (09:00)
[2022-03-26 09:43] VITALS: BP 112/78
[2022-03-26 10:17] VITALS: TEMP 98.6
--- NOTE | 2022-03-26 15:50 | P.SSS ---
Patient History Date of Service: 03/26/22 Reason for admission: WEAKNESS, PASSING OUT History of Present Illness: DOUGLAS HAS FEVER, COUGH AND PASSED OUT. SHE IS POSITIVE FOR COVID, FATIGUED AND HAS NO CHEST PAIN OR WEAKNESS. Allergies Penicillins Allergy (Verified 09/17/20 11:29) unknown exenatide [From Byetta] Adverse Reaction (Verified 09/17/20 11:29) Nausea/Vomiting sitagliptin phosphate [From Radha] Adverse Reaction (Verified 09/17/20 11:29) Nausea/Vomiting Home medications list reviewed: Yes Home Medications: Losartan/Hydrochlorothiazide [Hyzaar 100-12.5 Tablet] 1 each PO DAILY 08/16/14 Metformin HCl [Glucophage] 500 mg PO QID 08/16/14 Pravastatin Sodium [Pravachol] 40 mg PO BEDTIME 08/16/14 Ropinirole HCl [Requip] 2 mg PO BEDTIME 08/16/14 Estradiol [Estrace] 1 roman VAG PRN 01/13/17 Mirabegron [Myrbetriq] 50 mg PO BID 01/13/17 Amlodipine [Norvasc*] 5 mg PO DAILY #30 tab 01/20/17 Metoprolol Tartrate [Lopressor*] 50 mg PO BID 6AM 6PM #60 tab 01/20/17 PARoxetine HCL [Paxil*] 10 mg PO 1900 #30 tab 01/20/17 Aspirin Chewable [Aspirin Chewable*] 81 mg PO DAILY 09/17/20 Biotin 5,000 mcg PO DAILY 09/17/20 Famotidine 40 mg PO DAILY 09/17/20 Glimepiride [Amaryl] 8 mg PO DAILY 09/17/20 Insulin Glargine,Hum.rec.anlog [Basaglar Kwikpen U-100] 40 unit SQ DAILY 09/17/20 L.acidoph,Paracasei, B.lactis [Probiotic] 1 each PO DAILY 09/17/20 Magnesium Oxide [Magnesium] 250 mg PO DAILY 09/17/20 Meclizine HCl [Travel-Ease] 25 mg PO DAILY PRN 09/17/20 Methenamine/Sodium Salicylate [Azo Urinary Tract Defense Tab] 1 each PO PRN PRN 09/17/20 Mitchondrial Energy Booster 1 tab PO QID PRN 09/17/20 Pregabalin [Lyrica] 50 mg PO BID 09/17/20 Prevagen 2 tab PO DAILY 09/17/20 Triamterene/Hydrochlorothiazid [Triamterene-Hctz 37.5-25 mg Cp] 1 each PO DAILY 09/17/20 Ciprofloxacin HCl [Cipro 500 MG Tablet] 500 mg PO BID #10 tab 09/22/20 - Past Medical/Surgical History Diabetic: Yes -: Back pain with rradiculopathy -: Osteoarthritis -: DM TYPE 2 -: Hypercholesterolemia -: HTN -: Hysterectomy - Family History mom and dad -: Heart disease, Diabetes - Social History Alcohol use: No CD- Drugs: No Caffeine use: Yes Review of Systems 10-point ROS is otherwise unremarkable Physical Examination - Vital Signs Temperature: 98.6 F Blood Pressure: 112/78 Pulse: 90 Respirations: 18 Pulse Ox (%): 92 - Physical Exam General: Oriented x3, Mild distress HEENT: Atraumatic, PERRLA, Mucous membr. moist/pink, EOMI, Sclerae nonicteric Neck: Supple, 2+ carotid pulse no bruit, No LAD, Without JVD or thyroid abnormality Respiratory: Clear to auscultation bilaterally, Normal air movement Cardiovascular: Regular rate/rhythm, Normal S1 S2 Gastrointestinal: Normal bowel sounds, No tenderness Musculoskeletal: No tenderness Integumentary: No rashes Neurological: Normal gait, Normal speech, Normal strength at 5/5 x4 extr, Normal tone, Normal affect Lymphatics: No axilla or inguinal lymphadenopathy - Diagnosis (Problem(s)) (1) COVID-19 virus infection Status: Acute Plan: SHE DOES NOT HAVE RESPIRATORY DISTRESS. THERE IS NO PNEUMONIA. SHE WILL GO HOME ON PAXLOVID. I CALLED IT IN FROM OFFICE. SHE DOES NOT TAKE STATINS. - Disposition Disposition: ROUTINE DISCHARGE
--- NOTE | 2022-03-27 09:05 | EKG ---
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
--- NOTE | 2022-03-27 12:23 | CON ---
Date of Consultation: 03/26/[address] Shrestha's service with syncope. I saw the patient on 03/26/2022. History Of Present Illness: Ms. Olvera came in with syncope. She is COVID positive. She is 81 y ears old. Had an extensive past medical history and takes many medications. She does have a history of hypertension, diabetes, dyslipidemia, neuropathy, restless legs syndrome. Denies any chest pain, nausea, vomiting, diaphoresis, PND, orthopnea, pedal edema, palpitation. She just had a syncopal ep isode without being pre or postictal. Workup so far has been fairly unremarkable except for the COVI D positive. Allergies: SHE IS ALLERGIC TO PENICILLIN, EXENATIDE, AND SHE IS ALLERGIC TO SITAGLIPTIN PHOSPHATE. Medications: At home include metformin, losartan, aspirin, Norvasc, metoprolol, hydrochlorothiazide, pravastatin, Lyrica, insulin, Amaryl, and Requip. Physical Examination: Vital Signs: Stable. She was afebrile. HEENT: Negative. Neck: Supple without any bruit, lymphadenopathy, JVD, or thyromegaly. Chest: Clear to auscultation and percussion. Cardiac: Revealed a regular rhythm and rate without any murmurs, gallops, or rubs. Abdomen: Benign. Extremities: Revealed no clubbing, cyanosis, or edema. Diagnostic Data: Chest x-ray was negative. EKG was unremarkable. CT of the head was unremarkable. Impression And Plan: Syncope, most likely secondary to orthostatic hypotension and maybe COVID. I t hink Ms. Olvera needs to be hydrated well, maybe consider holding her losartan with hydrochlorothi azide for few days. I will make arrangements for her to see me in the office in the near future for workup to include event monitor and may be a carotid Doppler. Case was discussed with Dr. Shrestha. I do not think this is an acute coronary syndrome. The patient does not need to stay in the hospital. DEANNA/REINIER Voice ID: [id number] Report ID: [id number]
--- OUTSIDE RECORDS SUMMARY | 2022-04-01 06:05 | XMS REPORT | Continuity of Care Document ---
:1940 [address] [facility] t Address [address] [place] [address] [address] [place] [address] Care Team Providers Name Role Phone BrendaJovanyio Attending Clinician Unavailable Luis Alberto HAYDEN, Luigi Aragon Attending Clinician Payers Payer Name Policy Type Policy Number Effective Date Expiration Date S ource Problems Condition Condition Condition Status Onset Resolution Last Treating Co mments Source Name Details Category Date Date Treatment Clinician Date No known No known Disease [facility] active active College problems problems of Medicin e Allergies, Adverse Reactions, Alerts Allergy Allergy Status Severity Reaction(s) Onset Inactive Treating Comm ents Source Name Type Date Date Clinician Penicill Propensi Active Rash [facility] in G ty to 02-10 [place] adverse 00:00: of reaction 00 Medicin s to e drug Sitaglip Propensi Active Nausea And Ba ylor tin ty to Vomiting 02-10 [place] Phosphat adverse 00:00: of e reaction 00 Medicin s to e drug Social History Social Habit Start Date Stop Date Quantity Comments Source Sex Assigned At [facility] Co llege of Medicine Cigarettes smoked 2019-11-07 2019-11-07 [facility] current (pack per 00:00:00 00:00:00 of Medi cine day) - Reported Alcohol intake 2019-11-07 2019-11-07 Current drinker [facility] 00:00:00 00:00:00 of alcohol of Medicine (finding) Alcohol Comment 2019-11-07 2019-11-07 "glass of wine a [facility] 00:00:00 00:00:00 month" of Medicine History of tobacco 1982-10-07 Current smoker [facility] use 00:00:00 of Medicine Smoking Status Start Date Stop Date Source Former smoker 2019-11-07 00:00:00 2019-11-07 00:00:00 [facility] ollege of Medicine Medications Ordered Filled Start Stop Current Ordering Indication Dosage Frequency Signature Comments Components Source Medication Medication Date Date Medication? Clinician (SIG) Name Name aspirin EC Yes 81mg Take 81 mg B aylor 81 MG 2-26 by mouth College tablet 18:15: daily. of 36 Medicin e gabapentin 2019-0 Yes 100mg Take 100 Ba ylor (NEURONTIN) 2-26 mg by [place] 100 MG 18:15: mouth 3 of capsule 36 times Medicin daily. e losartan-hy Yes 1{tbl} Take 1 Tab [facility] drochloroth 2-26 by mouth Rena ege iazide 18:15: daily. of (HYZAAR) 36 Medicin 100-12.5 MG e per tablet MYRBETRIQ Yes 50mg Take 50 mg Ba ylor 50 MG TB24 2-11 by mouth Colle ge 00:00: daily. of 00 Medicin e pravastatin Yes 40mg Take 40 mg Stu (PRAVACHOL) 1-06 by mouth Rena ege 40 MG 00:00: daily. of tablet 00 Medicin e pregabalin Yes 50mg Take 50 mg B aylor (LYRICA) 50 -02 by mouth Rena ege MG capsule 00:00: daily. of 00 Medicin e metformin Yes 500mg Take 500 [place] debbie (GLUCOPHAGE 3-11 mg by [place] -XR) 500 MG 00:00: mouth of XR tablet 00 daily. Medicin e Vital Signs Vital Name Observation Time Observation Value Comments Source Systolic blood 2019-11-07 16:28:00 130 mm[Hg] [facility] of pressure Medicine Diastolic blood 2019-11-07 16:28:00 80 mm[Hg] [facility] of pressure Medicine Heart rate 2019-11-07 16:28:00 97 /min [facility] Body temperature 2019-11-07 16:28:00 37 [facility] Respiratory rate 2019-11-07 16:28:00 18 /min [facility] Body height 2019-11-07 16:28:00 160 cm [facility] Body weight 2019-11-07 16:28:00 77.384 kg [facility] BMI 2019-11-07 16:28:00 30.22 kg/m2 [facility] Oxygen saturation in 2019-11-07 16:28:00 100 /min [facility] Arterial blood by Medicine Pulse oximetry Procedures This patient has no known procedures. Plan of Care Planned Activity Planned Date Details Comments Source Future Scheduled Test TETANUS SHOT (ADULT) [facility] [code = TETANUS SHOT Medicin e (ADULT)] Future Scheduled Test OSTEOPOROSIS SCREENING [facility] [code = OSTEOPOROSIS Medicin e SCREENING] Future Scheduled Test PNEUMOVAX >=65 (PPSV23) [facility] [code = PNEUMOVAX >=65 Medic ine (PPSV23)] Future Scheduled Test PREVNAR >= 65 (PCV13) [facility] [code = PREVNAR >= 65 Medici ne (PCV13)] Future Scheduled Test MEDICARE AWV (Initial) [facility] [code = MEDICARE AWV Medicin e (Initial)] Future Scheduled Test FLU VACCINE > 6 MONTHS [facility] [code = FLU VACCINE > 6 Medi cine MONTHS] Future Scheduled Test BMI FOLLOW UP PLAN [facility] [code = BMI FOLLOW UP Medici ne PLAN] Future Scheduled Test FALL SCREEN [code = [facility] FALL SCREEN] Medicine Encounters Start End Encounter Admission Attending Care Care Encounter Source Date/Time Date/Time Type Type Clinicians Facility Department ID 2020-11-07 2020-11-07 Outpatient Elective Brenda [facility] [id number] [facility] 20:39:00 20:39:00 Bert[facility] 12 2019-11-07 2019-11-07 Office Solomon Sahu [facility] [id number] [facility] 10:20:28 12:01:06 Visit Tze Man AMBULATOR [id number] College Y [id number] Medi keesha 300 e Results This patient has no known results.
== END 2022-03-26 10:00 | disposition home or self-care (01) ==
LOC: ER 14:32 → ERHOLD 20:00
PROVIDERS: ADMIT Internal Medicine; ATTEND Internal Medicine
DX: U07.1 COVID-19 (principal); I10 Essential (primary) hypertension; E11.40 Type 2 diabetes mellitus with diabetic neuropathy, unspecified; E78.5 Hyperlipidemia, unspecified; G25.81 Restless legs syndrome; M54.16 Radiculopathy, lumbar region; M19.90 Unspecified osteoarthritis, unspecified site; E78.00 Pure hypercholesterolemia, unspecified; Z79.82 Long term (current) use of aspirin; Z79.84 Long term (current) use of oral hypoglycemic drugs; Z79.4 Long term (current) use of insulin; Z79.899 Other long term (current) drug therapy; Z88.0 Allergy status to penicillin; Z88.8 Allergy status to other drugs, medicaments and biological substances; Z90.710 Acquired absence of both cervix and uterus; Z82.49 Family history of ischemic heart disease and other diseases of the circulatory system; Z83.3 Family history of diabetes mellitus
CPT/HCPCS: 93005; 85025 ×2; 80048 ×2; 36415; 83735; 85610; 80076; 81003; 84484 ×4; 83880; 70450; 71045; 99283; U0003; J7050; J7030; G0378 ×3

== ENCOUNTER 2023-10-18 13:45 | Observation (INO) | payer OTHER ==
--- NOTE | 2023-10-18 14:41 | RAD REPORT ---
EXAM DESCRIPTION: CT - [id number] - 10/18/2023 2:22 pm CLINICAL HISTORY: Trauma, head and neck injury. Syncope;Weakness COMPARISON: <Comparisons> TECHNIQUE: Axial 5 mm thick images of the head were obtained. Axial 2 mm thick images of the cervical spine were obtained with sagittal and coronal reconstruction images generated and reviewed. All CT scans are performed using dose optimization technique as appropriate and may include automated exposure control or mA/KV adjustment according to patient size. FINDINGS: CT HEAD WITHOUT CONTRAST: No acute hemorrhage, hydrocephalus or extra-axial collection is identified.Mild generalized brain atr ophy is present with mild periventricular and deep white matter chronic microvascular ischemic change s.No areas of brain edema or midline shift. Left vertebral atherosclerosis. The paranasal sinuses and mastoids are clear.The calvarium is intact. CT CERVICAL SPINE WITHOUT CONTRAST: No fracture or subluxation.Moderate lower cervical spondylosis.No prevertebral soft tissues swelling is identified. Carotid atherosclerosis. IMPRESSION: No acute intracranial or cervical spine findings.
--- NOTE | 2023-10-18 14:41 | RAD REPORT ---
EXAM DESCRIPTION: RAD - Chest Single View - 10/18/2023 2:30 pm CLINICAL HISTORY: MALAISE Chest pain. COMPARISON: <Comparisons> FINDINGS: Portable technique limits examination quality. The lungs are grossly clear. The heart is normal in size. No displaced fractures. IMPRESSION: No acute intrathoracic process suspected.
[2023-10-18 15:48] LABS: Absolute Lymphocytes (CBC) 1.3 K/uL (0.7-4.9); Hematocrit 44.3 % (36.0-45.0); Lymphocytes % 10.9 % (15.3-44.8); MPV 8.7 fL (7.6-11.3); Platelets 277 thou/uL (152-406); RBC Red Blood Cell Count 4.76 M/uL (3.86-4.86)
[2023-10-18 16:01] LABS: Protime INR 1.1; Specific Gravity 1.022 (1.005-1.030); Urine Bacteria <20 /HPF (<20); Urine Bilirubin NEGATIVE (Negative); Urine Blood Negative (Negative); Urine Clarity Extremely Turbid (Clear); Urine Color Dark-Yellow (Yellow); Urine Crystals Unidentified Few /HPF (None Seen); Urine Glucose NEGATIVE (Negative); Urine Mucus 1+ /HPF (None Seen); Urine Protein TRACE (Negative); Urine RBC <5 /HPF (None Seen); Urine Urobilinogen Normal (Normal)
[2023-10-18 16:08] LABS: Albumin 3.8 g/dL (3.4-5.0); Bilirubin Direct 0.2 mg/dL (0-0.2); Bilirubin Indirect, Calculated 0.4 mg/dL (0.2-0.8); Bilirubin Total 0.6 mg/dL (0.2-1.0); Potassium 4.5 mEq/L (3.5-5.1); Protein, Total 7.3 g/dL (6.4-8.2); Troponin High Sensitivity 14.6 pg/mL (<58.9)
--- NOTE | 2023-10-18 16:48 | ER ---
Nurse's Notes [facility] Name: Maryann Olvera Age: 83 yrs Sex: Female : 1940 Arrival Date: 10/18/2023 Time: 13:45 Bed 15 Private MD: Diagnosis: Weakness;Syncope;Volume depletion, unspecified Presentation: 10/18 13:47 Chief complaint: EMS states: pt had a syncopal episode after getting out of the shower. as6 13:47 Method Of Arrival: EMS: [facility] as6 13:48 Coronavirus screen: At this time, the client does not indicate any symptoms associated as6 with coronavirus-19. Ebola Screen: No symptoms or risks identified at this time. Initial Sepsis Screen: Does the patient meet any 2 criteria? No. Patient's initial sepsis screen is negative. Does the patient have a suspected source of infection? No. Patient's initial sepsis screen is negative. Risk Assessment: Do you want to hurt yourself or someone else? Patient reports no desire to harm self or others. Onset of symptoms was October 18, 2023. 13:48 Acuity: AMINA 3 as6 Triage Assessment: 14:01 General: Appears in no apparent distress. comfortable, Behavior is calm, cooperative, bp appropriate for age. Pain: Denies pain. Historical: - Allergies: 14:01 exenatide; bp 14:01 PENICILLINS; bp 14:01 sitagliptin phosphate; bp - PMHx: 14:01 Diabetes - NIDDM; Hyperlipidemia; Hypertension; bp - Immunization history:: Adult Immunizations up to date. - Social history:: Smoking status: Patient denies any tobacco usage or history of. Screenin:00 [facility] ED Fall Risk Assessment (Adult) History of falling in the last 3 months, bp including since admission No falls in past 3 months (0 pts). Abuse screen: Denies threats or abuse. Denies injuries from another. Nutritional screening: No deficits noted. Tuberculosis screening: No symptoms or risk factors identified. Assessment: 14:00 General: SEE TRIAGE NOTE. bp 15:30 Reassessment: Patient appears in no apparent distress at this time. Patient is alert, bp oriented x 3, equal unlabored respirations, skin warm/dry/pink. 16:42 Reassessment: QMP AT B/S. bp Vital Signs: 13:47 BP 116 / 72; Pulse 95; Resp 16 S; Temp 97.8; Pulse Ox 100% on R/A; bp 16:41 BP 133 / 64; Pulse 99; Resp 16; Pulse Ox 100% ; bp 18:11 BP 107 / 66; Pulse 98; Resp 16; Pulse Ox 100% ; bp ED Course: 13:47 Patient arrived in ED. kb 13:47 Geeta Gerard FNP-C is [facility]. kb 13:47 Isaak Graham MD is Attending Physician. kb 13:48 Triage completed. as6 14:00 Jared Vicente, RN is Primary Nurse. bp 14:00 Patient has correct armband on for positive identification. bp 14:01 Arm band placed on. bp 14:21 CT Head C Spine In Process Unspecified. EDMS 14:33 Chest Single View XRAY In Process Unspecified. EDMS 15:35 Inserted saline lock: 24 gauge in right forearm, using aseptic technique. Blood bp collected. 16:47 Mitchell Shrestha MD is Hospitalizing Provider. kb 18:10 No provider procedures requiring assistance completed. Patient admitted, IV remains in bp place. Administered Medications: 17:10 Drug: NS 0.9% IV 500 ml IV at bolus once Route: IV; Rate: bolus; Site: right forearm; bp 18:12 Follow up: IV Status: Completed infusion; IV Intake: 500ml bp 17:11 Drug: NS 0.9% IV 1000 ml IV at 75 ml/hr continuous Route: IV; Rate: 75 ml/hr; Site: bp right forearm; 18:12 Follow up: IV Status: Infusion continued upon admission bp Medication: 18:10 VIS not applicable for this client. bp Intake: 18:12 IV: 500ml; Total: 500ml. bp Outcome: 16:47 Decision to Hospitalize by Provider. kb 18:10 Condition: stable bp 18:10 Instructed on the need for admit, 18:32 Admitted to Med/surg accompanied by tech, via stretcher, room Rm 415, Report called to victorino Romano RN 18:32 Condition: stable 18:56 Patient left the ED. as6 Signatures: Dispatcher [employer] EDPR Geeta Gerard FNP-C CAPACITOR TESTER-Lupillob Jared Vicente, RN RN bp Kamila Flores RN RN ap3 Tripp Montaño RN RN as6 Corrections: (The following items were deleted from the chart) 18:12 13:47 BP 116 / 72; Pulse 95bpm; Resp 16bpm; Spontaneous; Pulse Ox 100% RA; as6 bp
--- NOTE | 2023-10-18 16:48 | EDPHYS ---
Physician Documentation [facility] Name: Maryann Olvera Age: 83 yrs Sex: Female : 1940 Arrival Date: 10/18/2023 Time: 13:45 Bed 15 Private MD: ED Physician Isaak Graham HPI: 10/18 18:40 This 83 yrs old Female presents to ER via EMS with complaints of syncope. kb 18:40 Patient is a 83-year-old female who presents for weakness that started approximately 1 kb month ago and has been getting progressively worse with decreased appetite and decreased fluid intake. States she got dizzy while she was in the shower just prior to arrival, got out started walking towards her bed and had a syncopal episode. reports patient lost consciousness for approximately 2 minutes. Patient now awake, alert and oriented x 4.. Historical: - Allergies: 14:01 exenatide; bp 14:01 PENICILLINS; bp 14:01 sitagliptin phosphate; bp - PMHx: 14:01 Diabetes - NIDDM; Hyperlipidemia; Hypertension; bp - Immunization history:: Adult Immunizations up to date. - Social history:: Smoking status: Patient denies any tobacco usage or history of. ROS: 18:38 Constitutional: Negative for fever, chills, and weight loss, kb 18:38 Neuro: Positive for syncope, weakness, 18:38 All other systems are negative, Exam: 18:38 Constitutional: This is a well developed, well nourished patient who is awake, alert, kb and in no acute distress. Head/Face: Normocephalic, atraumatic. ENT: Moist Mucous membranes Cardiovascular: Regular rate Respiratory: Respirations even and unlabored. No increased work of breathing. Talking in full sentences Abdomen/GI: Soft, non-tender. No distention Skin: Warm, dry with normal turgor. Normal color. MS/ Extremity: Pulses equal, no cyanosis. Neurovascular intact. Full, normal range of motion. 18:38 Neuro: Orientation: to person, place, time \T\ situation. Mentation: is normal, able to follow commands, Motor: moves all fours, Sensation: is normal, Vital Signs: 13:47 BP 116 / 72; Pulse 95; Resp 16 S; Temp 97.8; Pulse Ox 100% on R/A; bp 16:41 BP 133 / 64; Pulse 99; Resp 16; Pulse Ox 100% ; bp 18:11 BP 107 / 66; Pulse 98; Resp 16; Pulse Ox 100% ; bp MDM: 13:47 Patient medically screened. kb 16:46 Data reviewed: vital signs, nurses notes. Consideration of Admission/Observation kb Patient was admitted/placed on observation. Escalation of care including admission/observation considered. Management of patient was discussed with the following: Primary Care Provider: Dr Shrestha accepts pt for admission. Historians other than the Patient: EMS: [facility]. Counseling: I had a detailed discussion with the patient and/or guardian regarding the historical points, exam findings, and any diagnostic results supporting the discharge/admit diagnosis, lab results, radiology results, the need for further work-up and treatment in the hospital. 18:39 Differential diagnosis: cardiac arrhythmia, CVA, generalized weakness, hypovolemia, kb syncope, TIA, vertigo. 10/18 13:47 Order name: Basic Metabolic Panel; Complete Time: 16:09 kb 10/18 13:47 Order name: CBC with Diff; Complete Time: 15:57 kb 10/18 13:47 Order name: Hepatic Function; Complete Time: 16:09 kb 10/18 13:47 Order name: Magnesium; Complete Time: 16:09 kb 10/18 13:47 Order name: Protime (+inr); Complete Time: 16:03 kb 10/18 13:47 Order name: Ptt, Activated; Complete Time: 16:03 kb 10/18 13:47 Order name: Troponin High Sensitivity; Complete Time: 16:09 kb 10/18 13:47 Order name: Urinalysis w/ reflexes; Complete Time: 16:01 kb 10/18 13:47 Order name: CT Head C Spine; Complete Time: 14:42 kb 10/18 13:47 Order name: Chest Single View XRAY; Complete Time: 14:42 kb 10/18 13:47 Order name: EKG; Complete Time: 13:48 kb 10/18 13:47 Order name: Cardiac monitoring; Complete Time: 14:09 kb 10/18 13:47 Order name: EKG - Nurse/Tech; Complete Time: 15:35 kb 10/18 13:47 Order name: IV Saline Lock; Complete Time: 15:35 kb 10/18 13:47 Order name: Labs collected and sent; Complete Time: 15:35 kb 10/18 13:47 Order name: NPO; Complete Time: 14:09 kb 10/18 13:47 Order name: O2 Per Protocol; Complete Time: 14:09 kb 10/18 13:47 Order name: O2 Sat Monitoring; Complete Time: 14:09 kb Administered Medications: 17:10 Drug: NS 0.9% IV 500 ml IV at bolus once Route: IV; Rate: bolus; Site: right forearm; bp 18:12 Follow up: IV Status: Completed infusion; IV Intake: 500ml bp 17:11 Drug: NS 0.9% IV 1000 ml IV at 75 ml/hr continuous Route: IV; Rate: 75 ml/hr; Site: bp right forearm; 18:12 Follow up: IV Status: Infusion continued upon admission bp Disposition: 18:58 Co-signature as Attending Physician, Isaak Graham MD I agree with the assessment and kdr plan of care. Disposition Summary: 10/18/23 16:47 Hospitalization Ordered Notes: Hospitalization Status: Observation kb Provider: Mitchell Shrestha Condition: Stable kb Problem: new kb Symptoms: are unchanged kb Bed/Room Type: Standard kb Location: Telemetry/MedSurg (observation)(10/18/23 18:00) bd Room Assignment: 415(10/18/23 18:00) bd Diagnosis - Weakness kb - Syncope kb - Volume depletion, unspecified kb Forms: - Medication Reconciliation Form kb - SBAR form kb - Leadership Thank You Letter kb Signatures: Dispatcher [employer] EDGeeta Duarte, MUSIC THEORY PROFESSOR-C MUSIC THEORY PROFESSOR-Maryann García Isaak Graham MD MD [facility] Humza Joshi, RN RN ja1 Jared Vicente, RN RN bp Corrections: (The following items were deleted from the chart) 17:34 16:47 Telemetry/MedSurg (observation) kb ja1 17:34 16:47 kb ja1 18:00 17:34 [facility] ER HOLD ja1 bd 18:00 17:34 ERHOLD- ja1 bd
[2023-10-18] MEDS ORDERED: NA CHLORIDE 0.9% 1,000 ML ONE (17:06)
[2023-10-18] MEDS: NA CHLORIDE 0.9% 1,000 ML IV SCH (19:00)
[2023-10-18 20:13] VITALS: BMI 24.3
[2023-10-18] MEDS: ATORVASTATIN 40 MG TAB ONE (22:39)
[2023-10-18] MEDS: ATORVASTATIN 40 MG TAB PO SCH (22:44)
--- NOTE | 2023-10-19 04:39 | HP ---
Date of Admission: 10/18/2023 Chief Complaint: Frequent falls and passing out today. History Of Present Illness: Patient is an 83-year-old lady who has been gradually getting worse with dizziness, lightheadedness, frequent falls, was found to have positive MRI finding with possible nor mal pressure hydrocephalus. Before that I had done her AUBREY scan, which was negative. I had done her evaluation for myasthenia gravis, which was negative and she had a spinal tap done for high-volume s jr tap to see if NPH improves and it did not improve any. She continued to get worse and she ende d up in the hospital now with worsening symptoms of the condition, which is going on for last month o r 2. Past Medical History: Patient has a diabetic neuropathy, diabetic vasculopathy, history of hypertens ion, history of frequent falls as described above, orthostatic hypotension. Family History: Not significant at this point. Surgical History: Hysterectomy, appendectomy, cholecystectomy. Physical Examination: Vital Signs: Blood pressure 135/70, afebrile. Chest: Clear. Heart: Regular. Abdomen: No guarding, no rebound, no rigidity. I suspect patient has lost weight, is not eating pro perly, does not have a good appetite any longer. Neurologic: She is generally weak. There are not any focal deficits. Has gradual wasting of her mu scles, but there is no stiffness. There are no twitches in the muscles and reflexes are hypo-reflex. Laboratory Data: On investigations, CBC, chem 7, liver profile, chest x-ray have been negative. Assessment/plan: Frequent falls, syncopal episode. I suspect orthostatic hypotension is one problem she has, which is because of diabetic neuropathy and the secondary problem we have is normal-pressur e hydrocephalus, unfortunately not improving at this point. We will do a high-volume spinal tap agai n. I will discuss with Dr. Burton. Patient was not too eager to do this in the past, but she may do it now spinal tap to see effectiveness of the tap in improving her muscles . After that, she may have to go forward with LICENSED LOAN OFFICER ASSISTANT shunt, but the family support is not the best at this point. The grandson is trying to move back in the area to take care of her. Otherwise, at this poi nt, she will be going to a alf for physical therapy, so therapy has been consulted and lino l worker has been consulted. Prognosis is overall guarded. NATALEE/REINIER Voice ID: [id number]
[2023-10-19 05:22] LABS: Absolute Lymphocytes (CBC) 1.9 K/uL (0.7-4.9); Hematocrit 40.1 % (36.0-45.0); Lymphocytes % 22.2 % (15.3-44.8); MCV 92.3 fL (80-100); MPV 8.7 fL (7.6-11.3); Platelets 238 thou/uL (152-406); RBC Red Blood Cell Count 4.35 M/uL (3.86-4.86)
[2023-10-19 05:40] LABS: Potassium 3.7 mEq/L (3.5-5.1)
[2023-10-19] MEDS: ZENPEP 15000 UNIT PO SCH (08:00)
[2023-10-19] MEDS: MEMANTINE HCL 10 MG TABLET PO SCH (08:19)
[2023-10-19] MEDS: METFORMIN HCL 500 MG TAB PO SCH (08:19)
[2023-10-19] MEDS: EZETIMIBE 10 MG TAB PO SCH (08:21)
[2023-10-19] MEDS: SPIRONOLACTONE 25 MG TABLET PO SCH (08:22)
[2023-10-19] MEDS: acetaZOLAMIDE 250 MG TAB PO SCH (08:30)
[2023-10-19] MEDS: LACTOBACILLUS/ACIDOPHILUS TAB PO SCH (08:31)
[2023-10-19] MEDS: DULOXETINE 30 MG CAP PO SCH (08:31)
[2023-10-19] MEDS: BIOTIN 5000 MCG PO SCH (08:33)
[2023-10-19] MEDS: HOME MED 1 EA UNK (Mirabegron 50 MG) PO SCH (08:33)
[2023-10-19] MEDS: [UNRECOGNIZED DRUG - OTHER] PO SCH (08:34)
[2023-10-19] MEDS: ONDANSETRON 4 MG/2 ML VIAL IV PRN (14:29)
--- NOTE | 2023-10-19 16:42 | EKG ---
Test Date: 2023-10-18 Test Time: 15:33:18 Surveyor Rod Helper: BP MEASUREMENT RESULTS: Intervals: Rate: 97 HI: 232 QRSD: 66 QT: 348 QTc: 441 [place]: P: 63 HI: 232 QRS: 20 T: -1 INTERPRETIVE STATEMENTS: Sinus rhythm with 1st degree AV block Low voltage QRS Borderline ECG Compared to ECG 03/25/2022 15:29:40 Myocardial infarct finding no longer present Electronically Signed On 10-19-23 16:41:03 WOMEN'S SOCCER COACH by Vargas Mckeon
[2023-10-19] MEDS: ZENPEP PO SCH (16:56)
[2023-10-19] MEDS: ATORVASTATIN 40 MG TAB PO SCH (21:00)
--- NOTE | 2023-10-19 21:03 | P.PN ---
Subjective Date of Service: 10/19/23 Chief Complaint: WEAKNESS, FALLS OFTEN. Subjective: Worsening DOUGLAS HAS FALLEN A FEW TIMES. SHE HAS DIAGNOSIS OF NPH. THERAPEUTIC SPINAL TAP DID NOT HELP. DR. DOLL ADVISED ONE MORE TAP THAT WAS DONE TODAY. IDEALLY SHE SHOULD GET A VACUUM FURNACE OPERATOR OR LP SHUNT BUT AT AGE OF 83 DR DOLL DOES NOT SEE MUCH RECOVERY IN FUTURE. Review of Systems 10-point ROS is otherwise unremarkable General: Weakness Physical Examination - Vital Signs Temperature: 97.4 F Blood Pressure: 166/74 Pulse: 95 Respirations: 18 Pulse Ox (%): 98 - Physical Exam General: Oriented x2 (SOMEWHAT FORGETFUL, WORSE THAN BEFORE.), Mild distress HEENT: Atraumatic, PERRLA, EOMI Neck: Supple, JVD not distended Respiratory: Clear to auscultation bilaterally, Normal air movement Cardiovascular: Regular rate/rhythm, Normal S1 S2 Gastrointestinal: Normal bowel sounds, No tenderness Musculoskeletal: No tenderness Integumentary: No rashes Neurological: Abnormal strength (GEN WEAK.) Lymphatics: No axilla or inguinal lymphadenopathy - Studies Medications List Reviewed: Yes Assessment And Plan - Current Problems (Diagnosis) (1) NPH (normal pressure hydrocephalus) Current Visit: Yes Status: Acute Plan: HPI THERAPY IS NOT WORKING I CALLED HER GRANDSON SHE WANTED ME TO AND EXPLAINED. SIMON SOLIS IS AT BEDSIDE. HE IS S.O. (2) Diabetic neuropathy Current Visit: Yes Status: Chronic Plan: THIS ADDS TO ATAXIA ANF FALLS. (3) Frequent falls Current Visit: Yes Status: Acute Plan: ABOVE M GRAVIES RULED OUT PD RULED OUT- NORMAL AUBREY SCAN PMR RULED OUT NPH POS FOLLOWING IS FROM MY EMR 10/07 VITAMIN B12 [phone] Vitamin B12 Level [phone] PROGNOSIS IS POOR.
[2023-10-20] MEDS: EZETIMIBE 10 MG TAB PO SCH (08:28)
[2023-10-20] MEDS: DULOXETINE 30 MG CAP PO SCH (08:29)
[2023-10-20] MEDS: [UNRECOGNIZED DRUG - OTHER] PO SCH (08:29)
[2023-10-20] MEDS: acetaZOLAMIDE 250 MG TAB PO SCH (08:29)
[2023-10-20] MEDS: MEMANTINE HCL 10 MG TABLET PO SCH (08:29)
[2023-10-20] MEDS: **PT MED**Mirabegron [Myrbetriq] 50 MG Tab.Er.24h PO SCH (08:29)
[2023-10-20] MEDS: ENOXAPARIN 40 MG/0.4 ML SQ SCH (08:30)
[2023-10-20] MEDS ORDERED: METFORMIN HCL 500 MG TAB PO SCH (09:00)
[2023-10-20] MEDS ORDERED: HOME MED 1 EA UNK (Ozempic 1 MG) SQ SCH (09:00)
[2023-10-20 10:40] VITALS: O2SAT 95
--- NOTE | 2023-10-20 10:41 | RAD REPORT ---
EXAM DESCRIPTION: RAD - Lumbar Puncture For Dx - 10/20/2023 10:25 am CLINICAL HISTORY: Lumbar Puncture For Dx dated 10/03/2023; Lumbar Spine 3 Views dated 07/21/2023; Lumb ar Spine 3 Views dated 07/07/2023; LUMBAR SPINE 3 VIEWS dated 11/30/2013 COMPARISON: None. TECHNIQUE: The procedure, risks and alternatives to the procedure were discussed with the patient in detail. After answering all questions, both oral and written consent were obtained. Time-out procedu re was performed. The patient was placed in an oblique prone position on the fluoroscopic table. The skin of the lower back was prepped and draped in the usual sterile fashion. After anesthetizing the skin and deeper sof t tissues with 1% lidocaine, a 21 gauge needle was advanced into the thecal sac at the L2-3 level. 28 cc of clear CSF was obtained. At the conclusion of the procedure the needle was withdrawn and a sterile bandage placed over the pun cture site. The patient tolerated the procedure well without immediate complications. Post-procedure care and precaution instructions were discussed with the patient before the LP procedure. Fluoroscopy time: 0.4 minutes Radiation dose: 11.359 mGy IMPRESSION: Successful fluoroscopic guided therapeutic lumbar puncture. 30 cc (high volume) was obta ined per the order.
--- NOTE | 2023-10-20 13:26 | P.DS ---
Admission Date: 10/18/23 Discharge Date: 10/20/23 Disposition: TRANSFER TO RESIDENTIAL Discharge Condition: FAIR Reason for Admission: WEAKNESS, FALLS OFTEN. - Problems (1) NPH (normal pressure hydrocephalus) Current Visit: Yes Status: Acute (2) Diabetic neuropathy Current Visit: Yes Status: Chronic (3) Frequent falls Current Visit: Yes Status: Acute Hospital Course: DOUGLAS HAS NPH. SHE DID NOT IMPROVE WITH SPINAL TAP. SHE STAYS UNSTEADY AND IS AT RISK OF FALL. SHE IS STABLE TO GO TO [place] FOR PT. SHE HAS METABOLIC ACIDOSIS FROM ACETAZOLAMIDE. NO SIGNS OF INFECTION OR ANY OTHER METABOLIC ACIDOSIS. Vital Signs/Physical Exam: Temp Pulse Resp BP Pulse Ox 97.5 F 92 H 18 142/70 H 96 10/20/23 06:46 10/20/23 06:46 10/20/23 06:46 10/20/23 06:46 10/20/23 06:46 Laboratory Data at Discharge: WBC 8.40 thou/uL (4.3-10.9) 10/19/23 04:52 Hgb 13.3 g/dL (12.0-15.0) D 10/19/23 04:52 Hct 40.1 % (36.0-45.0) 10/19/23 04:52 Plt Count 238 thou/uL (152-406) 10/19/23 04:52 PT 12.1 SECONDS (9.5-12.5) 10/18/23 15:36 INR 1.10 10/18/23 15:36 APTT 31.1 SECONDS (24.3-36.9) 10/18/23 15:36 Sodium 138 mEq/L (136-145) 10/19/23 04:52 Potassium 3.7 mEq/L (3.5-5.1) D 10/19/23 04:52 BUN 21 mg/dL (7-18) H 10/19/23 04:52 Creatinine 1.05 mg/dL (0.55-1.02) H 10/19/23 04:52 Glucose 108 mg/dL (74-106) H 10/19/23 04:52 Magnesium 2.0 mg/dL (1.6-2.4) 10/18/23 15:36 Total Bilirubin 0.6 mg/dL (0.2-1.0) 10/18/23 15:36 AST 21 U/L (15-37) 10/18/23 15:36 ALT 34 U/L (13-56) 10/18/23 15:36 Alkaline Phosphatase 77 U/L (45-117) 10/18/23 15:36 Home Medications: Atorvastatin Calcium [Lipitor] 40 mg PO BEDTIME 10/18/23 Biotin 5,000 mcg PO DAILY 10/18/23 Duloxetine HCl [Cymbalta] 30 mg PO DAILY 10/18/23 Ezetimibe [Zetia*] 10 mg PO DAILY 10/18/23 L.acidoph,Paracasei, B.lactis [Probiotic] 1 cap PO DAILY 10/18/23 Lipase/Protease/Amylase [Zenpep Dr 5,000 Unit Capsule] 15,000 unit PO TIDWM 10/18/23 Memantine HCl 5 mg PO DAILY 10/18/23 Metformin HCl 2,000 mg PO DAILY 10/18/23 Mirabegron [Myrbetriq] 50 mg PO DAILY 10/18/23 Mitochondrial Energy Booster 1 cap PO DAILY 10/18/23 Spironolactone 50 mg PO DAILY 10/18/23 acetaZOLAMIDE [Acetazolamide] 250 mg PO DAILY 10/18/23 Mitochondrial Energy Booster 1 cap PO DAILY 10/20/23 Followup: Mitchell Shrestha MD [Primary Care Provider] -
[2023-10-20 13:56] LABS: Arterial Blood Carboxyhemoglob 0.8 % (0-1.5); Blood Gas Oxyhemoglobin 93.9 % (94-97); Blood O2 Saturation 95.9 % (92-98.5)
[2023-10-20 14:54] LABS: SARS-CoV-2 Antigen Rapid Res Negative (Negative)
[2023-10-20 18:18] VITALS: TEMP 98.2
[2023-10-20] MEDS ORDERED: cloNIDine HCL 0.1 MG TAB ONE (19:58)
[2023-10-20] MEDS: cloNIDine HCL 0.1 MG TAB PO PRN (20:02)
[2023-10-20 20:14] VITALS: BP 205/81
== END 2023-10-20 20:35 ==
LOC: ER 13:45 → ERHOLD 17:09 → 4TH 18:04
PROVIDERS: ADMIT Internal Medicine; ATTEND Internal Medicine
PROC: 009U3ZX Drainage of Spinal Canal, Percutaneous Approach, Diagnostic (ICD-10-PCS; principal; 2023-10-20)
PROC: B01BZZZ Fluoroscopy of Spinal Cord (ICD-10-PCS; 2023-10-20)
DX: G91.2 (Idiopathic) normal pressure hydrocephalus (principal); I10 Essential (primary) hypertension; I95.1 Orthostatic hypotension; E11.40 Type 2 diabetes mellitus with diabetic neuropathy, unspecified; Z91.81 History of falling; Z11.52 Encounter for screening for COVID-19
CPT/HCPCS: 93005; 85025 ×2; 81001; 80048 ×2; 36415 ×2; 83735; 85610; 82947 ×3; 80076; 85730; 84484; 87804 ×2; 70450; 72125; 71045; 77003; 97116 ×2; 97161; 97530; 82805; 87811; 36600; 62328; J2405; J7030 ×3; G0378

== ENCOUNTER 2024-08-08 11:09 | Emergency (ER) | payer OTHER ==
[2024-08-08] MEDS ORDERED: ONDANSETRON 4 MG (ODT) TAB ONE (11:45)
[2024-08-08] MEDS ORDERED: HYDROCODONE/APAP 7.5/325 MG TAB ONE (11:45)
--- NOTE | 2024-08-08 12:39 | ER ---
Nurse's Notes [facility] Name: Maryann Olvera Age: 83 yrs Sex: Female : 1940 Arrival Date: 08/08/2024 Time: 11:09 Bed 11 Private MD: Diagnosis: Fall on same level, unspecified;Contusion of shoulder;Contusion of shoulder and upper arm Presentation: 08/08 11:24 Coronavirus screen: Client denies travel out of the [place] in the last 14 days. At this ll1 time, the client does not indicate any symptoms associated with coronavirus-19. 11:24 Method Of Arrival: EMS: [facility] ll1 11:25 Chief complaint: Patient states: Cart rolled away from her at [facility] 20 min [employer]. Hit head, ll1 no LOC. L shoulder pain since. EMS states: [facility]. Ebola Screen: Patient denies travel to an Ebola-affected area in the 21 days before illness onset. Initial Sepsis Screen: Does the patient meet any 2 criteria? No. Patient's initial sepsis screen is negative. Does the patient have a suspected source of infection? No. Patient's initial sepsis screen is negative. Risk Assessment: Do you want to hurt yourself or someone else? Patient reports no desire to harm self or others. Onset of symptoms was August 08, 2024. 11:25 Acuity: AMINA 3 ll1 14:28 Care prior to arrival: None. Mechanism of Injury: Fall. Trauma event details: Injury ll1 occurred in the [facility]. Triage Assessment: 11:24 General: Appears uncomfortable, Behavior is calm, cooperative, appropriate for age. ll1 Pain: Complains of pain in L shoulder Quality of pain is described as aching. Neuro: Reports headache. Musculoskeletal: Circulation, motion, and sensation intact. Capillary refill < 3 seconds, in left fingers. Reports pain in left arm. Injury Description: Bruise. Trauma Activation: Not Applicable Physician: ED Physician; Name: ; Notified At: ; Arrived At: Physician: General Surgeon; Name: ; Notified At: ; Arrived At: Physician: Radiology; Name: ; Notified At: ; Arrived At: Physician: Respiratory; Name: ; Notified At: ; Arrived At: Physician: Lab; Name: ; Notified At: ; Arrived At: Historical: - Allergies: 11:20 exenatide; ll1 11:20 PENICILLINS; ll1 11:20 sitagliptin phosphate; ll1 - Home Meds: 11:24 Ozempic subcutaneous [Active]; ll1 - PMHx: 11:20 Diabetes - NIDDM; Hyperlipidemia; Hypertension; ll1 - PSHx: 11:24 hysterectomy; ll1 11:25 Cholecystectomy; ll1 - Immunization history:: Adult Immunizations up to date. - Infectious Disease History:: Denies. - Immunization history: Last tetanus immunization: - up to date. - Social history:: Smoking status: Patient denies any tobacco usage or history of. - Family history:: not pertinent. Screenin:26 [facility] ED Fall Risk Assessment (Adult) History of falling in the last 3 months, ll1 including since admission Yes- single mechanical fall (1 pt) Confusion or Disorientation No (0 pts) Intoxicated or Sedated No (0 pts) Impaired Gait No (0 pts) Mobility Assist Device Used Yes (1 pt) Altered Elimination No (0 pt) Score/Fall Risk Level 0 - 2 = Low Risk Maintained a safe environment, Hourly rounding (assess needs \T\ fall precautionary measures) done. Abuse screen: Denies threats or abuse. Nutritional screening: No deficits noted. Tuberculosis screening: No symptoms or risk factors identified. Primary Survey: 14:27 NO uncontrolled hemorrhage observed. A: The client is awake and alert. The airway is ll1 patent. Breathing/Chest: Spontaneous respiratory effort, equal unlabored respirations, breath sounds clear bilaterally, regular pattern, symmetrical chest rise and fall. Circulation: No external hemorrhage present. Regular and strong central pulse, skin warm/dry/normal color. Disability Client is alert. Exposure/Environment: There is no evidence of uncontrolled external bleeding. 14:27 Reassessment Alertness and Airway: Awake and alert. The airway is patent. Breathing: ll1 Spontaneous respiratory effort, equal unlabored respirations, breath sounds clear bilaterally, regular pattern with symmetrical chest rise and fall. Circulation: No external hemorrhage noted. Regular and strong central pulse, skin warm/dry/normal color. Disability: Alert. Assessment: 11:24 General: Appears uncomfortable, Behavior is calm, cooperative, appropriate for age. ll1 Pain: Complains of pain in left arm. Neuro: Reports headache. Musculoskeletal: Reports pain in left arm. 11:55 Reassessment: No changes from previously documented assessment. Patient and/or family ll1 updated on plan of care and expected duration. Pain level reassessed. Patient is alert, oriented x 3, equal unlabored respirations, skin warm/dry/pink. 14:26 Reassessment: No changes from previously documented assessment. Patient and/or family ll1 updated on plan of care and expected duration. Pain level reassessed. Musculoskeletal: Circulation, motion, and sensation intact. Capillary refill < 3 seconds, in left fingers. Vital Signs: 11:25 BP 152 / 71; Pulse 75; Resp 17; Temp 97.9; Pulse Ox 100% ; Weight 63.5 kg; Height 5 ft. ll1 3 in. ; Pain 6/10; 13:02 BP 147 / 76; Pulse 71; Resp 17; Pulse Ox 100% ; Pain 3/10; ll1 14:26 BP 140 / 88; Pulse 72; Resp 16; Pulse Ox 100% ; Pain 3/10; ll1 11:25 Body Mass Index 24.80 (63.50 kg, 160.02 cm) ll1 11:25 Pain Scale: Adult ll1 13:02 Pain Scale: Adult ll1 14:26 Pain Scale: Adult ll1 [place] Coma Score: 14:27 Eye Response: spontaneous(4). Motor Response: obeys commands(6). Verbal Response: ll1 oriented(5). Total: 15. Trauma Score (Adult): 14:27 Eye Response: spontaneous(1); Verbal Response: oriented(1); Motor Response: obeys ll1 commands(2); Systolic BP: > 89 mm Hg(4); Respiratory Rate: 10 to 29 per min(4); Ale[place] Score: 15; Trauma Score: 12 ED Course: 11:11 Patient arrived in ED. mg5 11:12 eY Coleman MD is Attending Physician. michael 11:21 Arm band placed on. ll1 11:26 Triage completed. ll1 11:44 Patient placed in an exam room, on a stretcher. ll1 11:54 Lucy Barrera, TRUNG is Primary Nurse. ll1 12:35 Shoulder Left (2 View) XRAY In Process Unspecified. EDMS 12:35 Chest Single View XRAY In Process Unspecified. EDMS 12:37 Maurilio Cole MD is Referral Physician. michael 13:38 CT Head C Spine In Process Unspecified. EDOK 14:27 No provider procedures requiring assistance completed. ll1 14:28 Patient has correct armband on for positive identification. Provided Education on: ll1 return to ED for worsening symptoms. 14:28 Patient did not have IV access during this emergency room visit. ll1 14:29 Patient maintains SpO2 saturation greater than 95% on room air. ll1 14:29 Thermoregulation: n/a. ll1 Administered Medications: 11:54 Drug: Hydrocodone-Acetaminophen PO (7.5 mg-325 mg) 1 tabs PO once {Note: pain 7/10 RASS ll1 0.} Route: PO; 13:02 Follow up: Response: No adverse reaction; Pain is decreased; RASS: Alert and Calm (0) ll1 11:54 Drug: Ondansetron Oral Disintegrating Tablet Oral Disintegrating Tablet 4 mg PO once ll1 Route: PO; 13:02 Follow up: Response: No adverse reaction ll1 Medication: 14:29 VIS not applicable for this client. ll1 Intake: 14:29 PO: 100ml (Water); Total: 100ml. ll1 Output: 14:29 Urine: 0ml; Total: 0ml. ll1 Outcome: 12:38 Discharge ordered by . [facility] 14:28 Discharged to home ambulatory, ll1 14:28 Condition: stable 14:28 Discharge instructions given to patient, Instructed on discharge instructions, follow up and referral plans. no drinking with medication, no driving heavy equipment, medication usage, Demonstrated understanding of instructions, follow-up care, medications, splint care, Prescriptions given X 3, 14:29 Patient's length of stay was not longer than 2 hours. ll1 14:29 Patient left the ED. ll1 Signatures: Dispatcher [employer] EDOK Ye Coleman MD MD cha Lewis, Lynsay, RN RN ll1 Shey Rizo mg5 Corrections: (The following items were deleted from the chart) 11:26 11:24 Coronavirus screen: Client denies travel out of the [place] in the last 14 days. At ll1 this time, the client does not indicate any symptoms associated with coronavirus-19. ll1 11:33 11:25 Pulse 75bpm; Resp 17bpm; Pulse Ox 100%; Temp 97.9F; 63.5 kg; Height 5 ft. 3 in.; ll1 BMI: 24.8; Pain 6/10, Adult; ll1
--- NOTE | 2024-08-08 12:39 | EDPHYS ---
Physician Documentation [facility] Name: Maryann Olvera Age: 83 yrs Sex: Female : 1940 Arrival Date: 08/08/2024 Time: 11:09 Bed 11 Private MD: ED Physician Ye Coleman HPI: 08/08 12:33 This 83 yrs old Female presents to ER via EMS with complaints of Fall Injury. michael 12:33 Details of fall: The patient fell from an upright position, while walking. Onset: The michael symptoms/episode began/occurred just prior to arrival. Associated injuries: The patient sustained anterior aspect of left shoulder and posterior aspect of left shoulder, decreased range of motion. Severity of symptoms: At their worst the symptoms were moderate, in the emergency department the symptoms are unchanged. The patient has not experienced similar symptoms in the past. Historical: - Allergies: 11:20 exenatide; ll1 11:20 PENICILLINS; ll1 11:20 sitagliptin phosphate; ll1 - Home Meds: 11:24 Ozempic subcutaneous [Active]; ll1 - PMHx: 11:20 Diabetes - NIDDM; Hyperlipidemia; Hypertension; ll1 - PSHx: 11:24 hysterectomy; ll1 11:25 Cholecystectomy; ll1 - Immunization history:: Adult Immunizations up to date. - Infectious Disease History:: Denies. - Immunization history: Last tetanus immunization: - up to date. - Social history:: Smoking status: Patient denies any tobacco usage or history of. - Family history:: not pertinent. ROS: 12:33 Constitutional: Negative for fever, chills, and weight loss, Eyes: Negative for injury, michael pain, redness, and discharge, ENT: Negative for injury, pain, and discharge, Neck: Negative for injury, pain, and swelling, Cardiovascular: Negative for chest pain, palpitations, and edema, Respiratory: Negative for shortness of breath, cough, wheezing, and pleuritic chest pain, Abdomen/GI: Negative for abdominal pain, nausea, vomiting, diarrhea, and constipation, Back: Negative for injury and pain, : Negative for injury, bleeding, discharge, and swelling, Skin: Negative for injury, rash, and discoloration, Neuro: Negative for headache, weakness, numbness, tingling, and seizure, Psych: Negative for depression, anxiety, suicide ideation, homicidal ideation, and hallucinations, Allergy/Immunology: Negative for hives, rash, and allergies, Endocrine: Negative for neck swelling, polydipsia, polyuria, polyphagia, and marked weight changes, Hematologic/Lymphatic: Negative for swollen nodes, abnormal bleeding, and unusual bruising, 12:33 MS/extremity: Positive for injury or acute deformity, decreased range of motion, pain, tenderness, of the anterior aspect of left shoulder and posterior aspect of left shoulder, Exam: 12:33 Constitutional: This is a well developed, well nourished patient who is awake, alert, michael and in no acute distress. Head/Face: Normocephalic, atraumatic. Eyes: Pupils equal round and reactive to light, extra-ocular motions intact. Lids and lashes normal. Conjunctiva and sclera are non-icteric and not injected. Cornea within normal limits. Periorbital areas with no swelling, redness, or edema. ENT: Nares patent. No nasal discharge, no septal abnormalities noted. Tympanic membranes are normal and external auditory canals are clear. Oropharynx with no redness, swelling, or masses, exudates, or evidence of obstruction, uvula midline. Mucous membranes moist. Neck: Trachea midline, no thyromegaly or masses palpated, and no cervical lymphadenopathy. Supple, full range of motion without nuchal rigidity, or vertebral point tenderness. No Meningismus. Chest/axilla: Normal chest wall appearance and motion. Nontender with no deformity. No lesions are appreciated. Cardiovascular: Regular rate and rhythm with a normal S1 and S2. No gallops, murmurs, or rubs. Normal PMI, no JVD. No pulse deficits. Respiratory: Lungs have equal breath sounds bilaterally, clear to auscultation and percussion. No rales, rhonchi or wheezes noted. No increased work of breathing, no retractions or nasal flaring. Abdomen/GI: Soft, non-tender, with normal bowel sounds. No distension or tympany. No guarding or rebound. No evidence of tenderness throughout. Back: No spinal tenderness. No costovertebral tenderness. Full range of motion. Female : Normal external genitalia. Skin: Warm, dry with normal turgor. Normal color with no rashes, no lesions, and no evidence of cellulitis. Neuro: Awake and alert, GCS 15, oriented to person, place, time, and situation. Cranial nerves II-XII grossly intact. Motor strength 5/5 in all extremities. Sensory grossly intact. Cerebellar exam normal. Normal gait. Psych: Awake, alert, with orientation to person, place and time. Behavior, mood, and affect are within normal limits. 12:33 Musculoskeletal/extremity: ROM: limited active range of motion, limited passive range of motion, in the anterior aspect of left shoulder and posterior aspect of left shoulder, limited active range of motion due to pain, limited passive range of motion due to pain, Circulation is intact in all extremities. Sensation intact. Compartment Syndrome exam of affected extremity: is normal. DVT Exam: No signs of deep vein thrombosis. no pain, no swelling, no tenderness, negative Homans' sign noted on exam, no appreciated bluish discoloration, no erythema, no increased warmth, Vital Signs: 11:25 BP 152 / 71; Pulse 75; Resp 17; Temp 97.9; Pulse Ox 100% ; Weight 63.5 kg; Height 5 ft. ll1 3 in. ; Pain 6/10; 13:02 BP 147 / 76; Pulse 71; Resp 17; Pulse Ox 100% ; Pain 3/10; ll1 14:26 BP 140 / 88; Pulse 72; Resp 16; Pulse Ox 100% ; Pain 3/10; ll1 11:25 Body Mass Index 24.80 (63.50 kg, 160.02 cm) ll1 11:25 Pain Scale: Adult ll1 13:02 Pain Scale: Adult ll1 14:26 Pain Scale: Adult ll1 [place] Coma Score: 14:27 Eye Response: spontaneous(4). Motor Response: obeys commands(6). Verbal Response: ll1 oriented(5). Total: 15. Trauma Score (Adult): 14:27 Eye Response: spontaneous(1); Verbal Response: oriented(1); Motor Response: obeys ll1 commands(2); Systolic BP: > 89 mm Hg(4); Respiratory Rate: 10 to 29 per min(4); [place] Score: 15; Trauma Score: 12 MDM: 11:12 Medical Screening Exam initiated michael 12:35 Differential diagnosis: contusion, fracture, multiple trauma, sprain, strain. Data [facility] reviewed: vital signs, nurses notes, radiologic studies, plain films. Consideration of Admission/Observation Escalation of care including admission/observation considered. I considered the following discharge prescriptions or medication management in the emergency department Medications were administered in the Emergency Department. See MAR. Independent interpretation of the following test(s) in the Emergency Department X-Ray: My interpretation is left shoulder. Test considered but Not performed: Labs: no labs. Historians other than the Patient: Spouse/Significant Other: well informed. Care significantly affected by the following chronic conditions: Diabetes, Hypertension. Counseling: I had a detailed discussion with the patient and/or guardian regarding the historical points, exam findings, and any diagnostic results supporting the discharge/admit diagnosis, radiology results, the need for outpatient follow up, for definitive care, a family practitioner, a orthopedic surgeon. 08/08 11:28 Order name: Shoulder Left (2 View) XRAY [facility] 08/08 11:28 Order name: Chest Single View XRAY [facility] 08/08 13:00 Order name: CT Head C Spine [facility] 08/08 11:28 Order name: Ice pack; Complete Time: 11:58 [facility] 08/08 12:33 Order name: Sling; Complete Time: 13:02 [facility] Administered Medications: 11:54 Drug: Hydrocodone-Acetaminophen PO (7.5 mg-325 mg) 1 tabs PO once {Note: pain 7/10 RASS ll1 0.} Route: PO; 13:02 Follow up: Response: No adverse reaction; Pain is decreased; RASS: Alert and Calm (0) ll1 11:54 Drug: Ondansetron Oral Disintegrating Tablet Oral Disintegrating Tablet 4 mg PO once ll1 Route: PO; 13:02 Follow up: Response: No adverse reaction ll1 Disposition Summary: 08/08/24 12:38 Discharge Ordered Notes: Location: Home michael Problem: new michael Symptoms: have improved michael Condition: Stable michael Diagnosis - Fall on same level, unspecified michael - Contusion of shoulder michael - Contusion of shoulder and upper arm michael Followup: michael - With: Private Physician - When: 2 - 3 days - Reason: Recheck today's complaints, Continuance of care, Re-evaluation by your physician Followup: michael - With: Maurilio Cole MD - When: 2 - 3 days - Reason: Recheck today's complaints, Re-evaluation by your physician Discharge Instructions: - Discharge Summary Sheet michael - Fall Prevention in the Home, Adult michael - Shoulder Pain michael - Shoulder Pain, [id number] michael - Fall Prevention in the Home, Adult, [id number] [facility] - Shoulder Sprain [facility] Forms: - Medication Reconciliation Form [facility] - Antibiotic Education [facility] - Prescription Opioid Use michael - Patient Portal Instructions [facility] - Leadership Thank You Letter [facility] Prescriptions: - acetaminophen-codeine 300-30 mg Oral tablet - take 1 tablet ORAL route every 4-6 hours as needed for pain; 20 tablet; [facility] Refills: 0, Product Selection Permitted - diclofenac sodium 25 mg Oral tablet, delayed release (enteric coated) - take 1 tablet ORAL route 4 times per day; 20 tablet; Refills: 0, Product [facility] Selection Permitted - methocarbamol 500 mg Oral tablet - take 1 tablet ORAL route 4 times per day for 5 days; 20 tablet; Refills: 0, [facility] Product Selection Permitted Signatures: Dispatcher [employer] Ye Machuca MD MD cha Lewis, Lynsay RN RN ll1 Corrections: (The following items were deleted from the chart) 11:28 11:28 Chest Single View+RAD.[email or web address].[email or web address] ordered. YESENIA PATTERSON
--- NOTE | 2024-08-08 12:40 | RAD REPORT ---
Procedure: Chest Single View HISTORY: Chest pain COMPARISON: October 2023 FINDINGS: The lungs appear clear of acute infiltrate. No significant pleural effusion noted. The heart is normal size. IMPRESSION: No acute abnormality is displayed.
--- NOTE | 2024-08-08 12:42 | RAD REPORT ---
Exam:Shoulder Left 2+ Views HISTORY: Left shoulder pain FINDINGS: No fracture or dislocation seen Osteoporosis
--- NOTE | 2024-08-08 14:01 | RAD REPORT ---
EXAMINATION: CT HEAD WITHOUT CONTRAST CT CERVICAL SPINE WITHOUT CONTRAST CLINICAL INDICATION: Head and neck injury status post fall. Head and neck pain TECHNIQUE: Axial CT images from the skull base to the vertex without intravenous contrast. Axial CT i mages through the cervical spine were obtained without intravenous contrast. Sagittal and coronal reformatted images were created from the data set. Coronal and sagittal reformatted images were creat ed from the data set. One or more of the following dose reduction techniques were used: Automated exposure control, adjustment of the mA and/or kV according to patient size, and/or iterative reconstr uction. Unless otherwise specified, incidental findings do not require dedicated imaging follow-up. [id number]. Comparison: October 2023 FINDINGS: An intracranial bleed is not seen. Ventricles are normal in caliber. No significant hypodensity within the brain No extra-axial fluid collection. No fluid within the sinuses/mastoids No fracture or dislocation is seen involving the cervical spine. Mild chronic anterior subluxation C4 on C5 and C5 on C6. Spondylosis. IMPRESSION: No acute intracranial abnormality noted A cervical fracture is not seen. If the patient continues to have symptoms to suggest acute LICENSED MORTICIAN/spinal pathology then MRI would be rec ommended
[2024-08-08 16:41] VITALS: TEMP 97.9; O2SAT 100
[2024-08-08 16:44] VITALS: BP 140/88
== END 2024-08-08 14:29 | disposition home or self-care (01) ==
LOC: ER 11:09
DX: S40.012A Contusion of left shoulder, initial encounter (principal); S40.022A Contusion of left upper arm, initial encounter; W18.30XA Fall on same level, unspecified, initial encounter; E11.9 Type 2 diabetes mellitus without complications; I10 Essential (primary) hypertension
CPT/HCPCS: 70450; 72125; 71045; 73030; 99284; Q0162

== ENCOUNTER 2025-04-27 14:17 | Emergency (ER) | payer OTHER ==
[2025-04-27] MEDS ORDERED: ONDANSETRON 4 MG/2 ML VIAL ONE (14:53)
[2025-04-27] MEDS ORDERED: FAMOTIDINE 20 MG/2 ML VIAL IV ONE (14:54)
[2025-04-27] MEDS ORDERED: NA CHLORIDE 0.9% 500 ML ONE ×2 (14:54→18:11)
[2025-04-27 15:19] LABS: Absolute Lymphocytes (CBC) 1.1 K/uL (0.7-4.9); Hematocrit 40.0 % (36.0-45.0); Hemoglobin 13.5 g/dL (12.0-15.0); MCH 31.5 pg (27.0-35.0); MCHC 33.7 g/dL (32.0-36.0); MCV 93.7 fL (80-100); MPV 8.2 fL (7.6-11.3); Nucleated RBC Absolute Count 0.0 (0-0); Nucleated Red Blood Cells % 0.0 % (0-0); RBC Red Blood Cell Count 4.27 M/uL (3.86-4.86); White Blood Count 7.60 thou/uL (4.3-10.9)
--- NOTE | 2025-04-27 15:21 | RAD REPORT ---
Procedure: Chest Single View HISTORY: Shortness of breath COMPARISON: 2023 FINDINGS: The lungs appear clear of acute infiltrate. No significant pleural effusion noted. The heart is normal size. IMPRESSION: No acute abnormality is displayed.
[2025-04-27 15:29] LABS: PT Prothrombin Time 13.3 SECONDS (10-13.0); Protime INR 1.18
[2025-04-27 15:33] LABS: Influenza A Ag Negative; Influenza B Ag Negative; SARS-CoV-2 Antigen Rapid Res Negative (Negative)
[2025-04-27 15:43] LABS: ALT/SGPT 30 U/L (13-56); AST/SGOT 12 U/L (15-37); Albumin 3.3 g/dL (3.4-5.0); Albumin/Globulin Ratio 1.0 (1.1-1.8); Alkaline Phosphatase 87 U/L (45-117); Anion Gap 9.3 mEq/L (5.0-15.0); BUN Blood Urea Nitrogen 28 mg/dL (7-18); Globulin 3.4 g/dL (2.3-3.5); Glucose Level 166 mg/dL (74-106); Magnesium 2.1 mg/dL (1.6-2.4); NT PRO-BNP 238 pg/mL (<450); Potassium 4.3 mEq/L (3.5-5.1); Troponin High Sensitivity 9.1 pg/mL (<58.9)
[2025-04-27 15:47] LABS: Bilirubin Indirect, Calculated 0.2 mg/dL (0.2-0.8)
--- NOTE | 2025-04-27 17:25 | RAD REPORT ---
EXAM: CT brain without contrast HISTORY: Generalized weakness. Vomiting. malaise COMPARISON: 2023 TECHNIQUE: Multiple contiguous axial images were obtained and a CT of the brain without contrast.. Sagittal and coronal reconstruction performed. Automated exposure control, adjustment of the mA and/or kV according to patient size, and/or iterative reconstruction. Unless otherwise specified, incidental f indings do not require dedicated imaging follow-up FINDINGS: An intracranial bleed is not seen Ventricles are normal caliber No extra-axial fluid collection noted No significant hypodensity within the brain No fluid within the visualized sinuses or mastoids noted. IMPRESSION: No acute intracranial abnormality noted. If the patient continues to have symptoms to suggest an acute intracranial abnormality then MRI of th e brain would be recommended.
--- NOTE | 2025-04-27 17:31 | RAD REPORT ---
EXAMINATION: CT ABDOMEN AND PELVIS WITH CONTRAST CLINICAL INDICATION: Abdominal pain TECHNIQUE: CT abdomen and pelvis was performed, after the administration of 100 cc Isovue-300.. Sagit shala and coronal reconstructions were obtained. One or more of the following dose reduction techniques were used: Automated exposure control, adjustment of the mA and kV according to patient si ze, and iterative reconstruction. Unless otherwise specified, incidental findings do not require dedicated imaging follow-up. [id number]. Oral contrast was not given which limits evaluation of bowel and appendix. COMPARISON: .2021 FINDINGS: Mild to moderate left hydronephrosis. Left ureter dilated. 5 mm calculus mid to distal left ureter Liver, spleen, pancreas, adrenals and right kidney appear unremarkable No evidence of diverticulitis. Cholecystectomy Hysterectomy. No adnexal mass : IMPRESSION: 5 mm calculus mid to distal left ureter results in mild to moderate left hydronephrosis
[2025-04-27] MEDS ORDERED: MECLIZINE HCL 12.5 MG TAB ONE (18:11)
[2025-04-27 18:37] LABS: Sqamous Epithelial <5 /HPF (None Seen); Urine Culture Reflex Order REFLEXED; Urine Microscopic Reflex YN ORDER UMIC; Urine Yeast (Budding) Trace /HPF (None Seen)
[2025-04-27] MEDS ORDERED: ACETAMINOPHEN 500 MG TAB ONE (19:15)
[2025-04-27] MEDS ORDERED: CEFTRIAXONE 1000 MG/VIAL ONE (19:16)
[2025-04-27] MEDS ORDERED: NA CHLORIDE 0.9% 50 ML ONE (19:17)
--- NOTE | 2025-04-27 19:24 | EDPHYS ---
Physician Documentation [facility] Name: Maryann Olvera Age: 84 yrs Sex: Female : 1940 Arrival Date: 04/27/2025 Time: 14:17 Bed 8 Private MD: ED Physician Anthony Logan HPI: 04/27 14:25 This 84 yrs old Female presents to ER via EMS with complaints of COVID+, cp Nausea/Vomiting, General Weakness. 14:25 The patient presents to the emergency department with Patient is an 84-year-old female cp with past medical history significant for diabetes and hypertension who presents to the emergency department with complaints of 5 days of nausea, anorexia and intermittent vomiting. Patient reports general weakness and reports testing positive for COVID yesterday with a home test. Patient complains of a slight cough and congestion. Denies any fever, denies any diarrhea and/or abdominal pain. Patient does not complain of any chest pain and reports the weakness is general and all over. Historical: - Allergies: 14:23 exenatide; af3 14:23 PENICILLINS; af3 14:23 sitagliptin phosphate; af3 - Home Meds: 14:23 losartan Oral [Active]; Metformin Oral [Active]; Ozempic subcutaneous [Active]; af3 - PMHx: 14:23 Diabetes - NIDDM; Hyperlipidemia; Hypertension; af3 - PSHx: 14:23 Cholecystectomy; hysterectomy; af3 - Immunization history:: Adult Immunizations up to date. - Infectious Disease History:: Denies. - Social history:: Smoking status: Patient denies any tobacco usage or history of. ROS: 14:30 Constitutional: Positive for poor PO intake, Negative for fever, cp 14:30 Cardiovascular: Negative for chest pain, edema, palpitations, cp 14:30 Eyes: Negative for injury, pain, redness, and discharge, cp 14:30 ENT: Negative for drainage from ear(s), ear pain, difficulty swallowing, difficulty handling secretions, 14:30 Respiratory: Positive for cough, "sounds productive", shortness of breath, Negative for wheezing, 14:30 Abdomen/GI: Positive for nausea and vomiting, Negative for abdominal pain, diarrhea, constipation, 14:30 Skin: Negative for cellulitis, rash, 14:30 Neuro: Positive for weakness, Negative for altered mental status, 14:30 All other systems are negative, Exam: 14:33 Constitutional: The patient appears in no acute distress, alert, awake, cp non-diaphoretic, non-toxic, well developed, well nourished, uncomfortable, 14:33 Head/Face: Normocephalic, atraumatic. cp 14:33 Eyes: Periorbital structures: appear normal, Conjunctiva: normal, no exudate, no injection, Sclera: no appreciated abnormality, Lids and lashes: appear normal, bilaterally, 14:33 ENT: External ear(s): are unremarkable, Nose: is normal, Mouth: Lips: moist, Oral mucosa: moist, Posterior pharynx: Airway: no evidence of obstruction, patent, 14:33 Chest/axilla: Inspection: normal, Palpation: crepitus, is not appreciated, tenderness, is not appreciated, 14:33 Cardiovascular: Rate: normal, Rhythm: regular, Edema: is not appreciated, JVD: is not appreciated, 14:33 Respiratory: the patient does not display signs of respiratory distress, Respirations: labored breathing, is not present, shallow respirations, that is mild, Breath sounds: decreased breath sounds, that are mild, throughout, stridor, is not appreciated, wheezing: is not appreciated, 14:33 Abdomen/GI: Inspection: abdomen appears normal, Bowel sounds: active, all quadrants, Palpation: abdomen is soft and non-tender, in all quadrants, 14:33 Back: CVA tenderness, is absent, 14:33 Skin: cellulitis, is not appreciated, no rash present. 14:33 Neuro: Orientation: to person, place \\T\\ time. Mentation: able to follow commands, Cerebellar function: Romberg testing is negative, Motor: moves all fours, no focal deficits, 17:33 ECG was reviewed by the Attending Physician. cp Vital Signs: 14:21 BP 131 / 75; Pulse 87; Resp 17; Temp 97.9; Pulse Ox 100% on R/A; Weight 69.4 kg; Height af3 5 ft. 3 in. ; Pain 0/10; 15:42 BP 142 / 71; Pulse 88; Resp 16; Pulse Ox 97% on R/A; dd2 17:30 BP 159 / 68 Supine; Pulse 95; hb 17:48 BP 159 / 68 Supine; Pulse 95; Resp 17; Pulse Ox 100% ; dd2 17:48 BP 170 / 82 Sitting; Pulse 97; Resp 17; Pulse Ox 100% on R/A; dd2 17:48 BP 148 / 86 Standing; Pulse 96; Resp 17; Pulse Ox 100% ; dd2 19:00 BP 162 / 81; Pulse 85; Resp 18; Pulse Ox 99% on R/A; al5 19:40 BP 175 / 81; Pulse 82; Resp 17; Pulse Ox 99% on R/A; al5 20:00 BP 147 / 87; Pulse 85; Resp 16; Pulse Ox 98% on R/A; al5 14:21 Body Mass Index 27.10 (69.40 kg, 160.02 cm) af3 14:21 Pain Scale: Adult af3 MDM: 19:24 Medical Screening Exam initiated cp 19:25 Data reviewed: vital signs, nurses notes, lab test result(s), EKG, radiologic studies, cp CT scan, plain films, I have discussed the patient's presentation/case with the attending Emergency Department Physician;. 19:25 Differential diagnosis: gastritis, diverticulitis, viral gastroenteritis, cp gastroenteritis. I considered the following discharge prescriptions or medication management in the emergency department Medications were administered in the Emergency Department. See MAR. Independent interpretation of the following test(s) in the Emergency Department EKG: See my EKG interpretation above. Counseling: I had a detailed discussion with the patient and/or guardian regarding the historical points, exam findings, and any diagnostic results supporting the discharge/admit diagnosis, lab results, radiology results, the need to transfer to another facility, [facility] does not immediately have the required specialist. Response to treatment: the patient's symptoms have mildly improved after treatment. 19:52 ED course: consult with DR Payan, hospitalist at [facility], will accept patient cp as transfer after discussion. 04/27 14:23 Order name: Basic Metabolic Panel; Complete Time: 16:36 cp 04/27 16:37 Interpretation: Normal except: CL 109; GLUC 166; BUN 28; CRE 1.38; GFR 37; CA 8.2. cp 04/27 14:23 Order name: CBC with Diff; Complete Time: 15:30 cp 04/27 16:37 Interpretation: Normal except: RDW 15.9; NICHOLAS% 75.1; LYM% 14.1. cp 04/27 14:23 Order name: LFT's; Complete Time: 16:36 cp 08 19:50 Interpretation: Normal except: AST 12. cp 04/27 14:23 Order name: Magnesium; Complete Time: 16:36 cp 04/27 14:23 Order name: NT PRO-BNP; Complete Time: 16:36 cp 08/ 14:23 Order name: PT-INR; Complete Time: 15:30 cp 04/27 14:23 Order name: Troponin HS; Complete Time: 16:36 cp 04/27 14:23 Order name: COVID-19 Ag + Flu A+B Ag; Complete Time: 16:36 cp /16 16:37 Interpretation: Reviewed. 04/27 14:23 Order name: UA Rfx Agustin Cult if indicated; Complete Time: 19:13 cp 04/27 19:13 Interpretation: Normal except: UPH 8.0; UESTR 500; UWBC 10-20; BYST Trace. 04/27 18:44 Order name: Urine Culture EDMS 04/27 14:23 Order name: XRAY Chest (1 view); Complete Time: 15:30 16 16:38 Order name: CT Head Brain wo Cont; Complete Time: 17:32 cp /16 16:38 Order name: CT Abd/Pelvis - IV Contrast Only; Complete Time: 17:32 cp 04/27 17:33 Interpretation: Report reviewed. 04/27 14:23 Order name: Cardiac monitoring; Complete Time: 15:18 cp 04/27 14:23 Order name: EKG - Nurse/Tech; Complete Time: 17:49 cp 04/27 14:23 Order name: IV Saline Lock; Complete Time: 15:18 cp 08 14:23 Order name: Labs collected and sent; Complete Time: 15:18 cp 04/27 14:23 Order name: O2 Per Protocol; Complete Time: 14:53 cp 04/27 14:23 Order name: O2 Sat Monitoring; Complete Time: 14:53 cp 04/27 14:25 Order name: Orthostatic Blood Pressure; Complete Time: 17:49 cp 08 17:54 Order name: PO challenge; Complete Time: 18:38 cp EC:33 Rate is 94 beats/min. Rhythm is regular. CA interval is prolonged at 254 msec. QRS cp interval is normal. QT interval is normal. T waves are Inverted in lead aVR. Interpreted by me. Reviewed by me. Administered Medications: 15:18 Drug: Ondansetron IVP 4 mg IVP once; over 2 minutes Route: IVP; Site: right antecubital;hb 17:49 Follow up: Response: No adverse reaction hb 15:18 Drug: Famotidine IVP 20 mg IVP once; dilute with 10 mL 0.9% NaCl; give over 2 minutes hb Route: IVP; Site: right antecubital; 17:49 Follow up: Response: No adverse reaction hb 15:18 Drug: NS 0.9% IV 500 ml 500 ml IV at 1 bolus once; to be given as a bolus over 60 hb minutes Volume: 500 ml; Route: IV; Rate: 1 bolus; Site: right antecubital; 15:45 Follow up: Response: No adverse reaction; IV Status: Completed infusion; IV Intake: hb 500ml 18:27 Drug: Meclizine PO 25 mg PO once Route: PO; hb 19:28 Follow up: Response: No adverse reaction al5 18:27 Drug: NS 0.9% IV 500 ml 500 ml IV at 100 ml/hr once Volume: 500 ml; Route: IV; Rate: hb 100 ml/hr; Site: right antecubital; 19:28 Follow up: Response: No adverse reaction; IV Status: Completed infusion; IV Intake: al5 500ml 19:26 Drug: Rocephin IV 1 grams IV at calculated rate once; Given slow IV push per pharmacy al5 instructions Route: IV; Rate: calculated rate; Site: right antecubital; 20:22 Follow up: Response: No adverse reaction; IV Status: Completed infusion; IV Intake: [id number] 19:26 Drug: Acetaminophen PO 1000 mg PO once Route: PO; al5 20:22 Follow up: Response: No adverse reaction; Pain is decreased al5 Disposition Summary: 04/27/25 19:24 Transfer Ordered Notes: Transfer Location: [facility] cp Reason: Higher level of care cp Condition: Stable cp Problem: new cp Symptoms: have improved cp Accepting Physician: doctor(04/27/25 21:09) al5 Diagnosis - Nausea with vomiting, unspecified cp - Calculus of ureter - left cp - Volume depletion, unspecified cp Forms: - Medication Reconciliation Form cp - SBAR form cp Signatures: Dispatcher [employer] EDMS Ye Terrell PA-C PANuzhat Montiel cp, RN RN Kamila Shelodn RN RN al5 Felicia Babcock, TRUNG RN af3 Corrections: (The following items were deleted from the chart) 14:24 14:24 BASIC METABOLIC PANEL+C.LAB.BRZ ordered. EDMS EDMS 14:24 14:24 CBC+H.LAB.BRZ ordered. EDMS EDMS 14:24 14:24 HEPATIC FUNCTION+C.LAB.BRZ ordered. EDMS EDMS 14:24 14:24 MAGNESIUM+C.LAB.BRZ ordered. EDMS EDMS 14:24 14:24 PROBNP+C.LAB.BRZ ordered. EDMS EDMS 14:24 14:24 PROTIME (+INR)+COAG.LAB.BRZ ordered. EDMS EDMS 14:24 14:24 Troponin High Sensitivity+C.LAB.BRZ ordered. EDMS EDMS 14:24 14:24 COVID-19 Ag + Flu A+B Ag+I.LAB.BRZ ordered. EDMS EDMS 14:24 14:24 Chest Single View+RAD.RAD.BRZ ordered. EDMS EDMS 14:24 14:24 UA Rfx Agustin Cult if indicated+U.LAB.BRZ ordered. EDMS EDMS 19:25 19:24 doctor cp cp 21:09 19:25 doctor cp al5
--- NOTE | 2025-04-27 19:24 | ER ---
Nurse's Notes [facility] Name: Maryann Olvera Age: 84 yrs Sex: Female : 1940 Arrival Date: 04/27/2025 Time: 14:17 Bed 8 Private MD: Diagnosis: Nausea with vomiting, unspecified;Calculus of ureter-left;Volume depletion, unspecified Presentation: 04/27 14:21 Chief complaint: EMS states: Malaise, N/V, generalized weakness, and SOB x 5 days. af3 Tested COVID+ yesterday. NS 250ml to 20g RAC. AOx4, positive orthostatics. Coronavirus screen: Client reports previous positive COVID test result. Date of collection: April 26, 2025. Ebola Screen: No symptoms or risks identified at this time. Initial Sepsis Screen: Does the patient meet any 2 criteria? No. Patient's initial sepsis screen is negative. Does the patient have a suspected source of infection? No. Patient's initial sepsis screen is negative. Risk Assessment: Do you want to hurt yourself or someone else? Patient reports no desire to harm self or others. Onset of symptoms was April 23, 2025. 14:21 Method Of Arrival: EMS: [facility] af3 14:21 Acuity: AMINA 3 af3 Triage Assessment: 14:23 General: Appears in no apparent distress. comfortable, well groomed, Behavior is calm, af3 cooperative, appropriate for age. Pain: Denies pain. EENT: No signs and/or symptoms were reported regarding the EENT system. Neuro: Level of Consciousness is awake, alert, obeys commands, Oriented to person, place, time, situation, Appropriate for age. Cardiovascular: Patient's skin is warm and dry. Respiratory: Airway is patent is compromised Respiratory effort is even, unlabored, Respiratory pattern is regular, symmetrical. GI: No signs and/or symptoms were reported involving the gastrointestinal system. GI: Reports nausea, vomiting. : No signs and/or symptoms were reported regarding the genitourinary system. Derm: No signs and/or symptoms reported regarding the dermatologic system. Musculoskeletal: No signs and/or symptoms reported regarding the musculoskeletal system. Historical: - Allergies: 14:23 exenatide; af3 14:23 PENICILLINS; af3 14:23 sitagliptin phosphate; af3 - Home Meds: 14:23 losartan Oral [Active]; Metformin Oral [Active]; Ozempic subcutaneous [Active]; af3 - PMHx: 14:23 Diabetes - NIDDM; Hyperlipidemia; Hypertension; af3 - PSHx: 14:23 Cholecystectomy; hysterectomy; af3 - Immunization history:: Adult Immunizations up to date. - Infectious Disease History:: Denies. - Social history:: Smoking status: Patient denies any tobacco usage or history of. Screenin:19 [facility] ED Fall Risk Assessment (Adult) History of falling in the last 3 months, hb including since admission No falls in past 3 months (0 pts) Confusion or Disorientation No (0 pts) Intoxicated or Sedated No (0 pts) Impaired Gait No (0 pts) Mobility Assist Device Used No (0 pt) Altered Elimination No (0 pt) Score/Fall Risk Level 0 - 2 = Low Risk Oriented to surroundings, Maintained a safe environment, Educated pt \T\ family on fall prevention, incl call for assistance when getting out of bed. Abuse screen: Denies threats or abuse. Denies injuries from another. Nutritional screening: No deficits noted. Tuberculosis screening: No symptoms or risk factors identified. Assessment: 14:29 General: see triage assessment . af3 15:42 Reassessment: Patient appears in no apparent distress at this time. Patient and/or dd2 family updated on plan of care and expected duration. Pain level reassessed. Patient is alert, oriented x 3, equal unlabored respirations, skin warm/dry/pink. 17:50 Reassessment: Pt dizzy when sitting/standing during orthostatics, PA Page notified. hb 18:27 Reassessment: Patient appears in no apparent distress at this time. Patient and/or hb family updated on plan of care and expected duration. Pain level reassessed. Patient is alert, oriented x 3, equal unlabored respirations, skin warm/dry/pink. 19:08 General: Appears in no apparent distress. comfortable, Behavior is calm, cooperative. al5 Pain: Complains of pain in head. Neuro: Level of Consciousness is awake, alert, obeys commands, Oriented to person, place, time, situation. Cardiovascular: Heart tones S1 S2 present Patient's skin is warm and dry. Respiratory: Airway is patent Respiratory effort is even, unlabored, Respiratory pattern is regular, symmetrical, Breath sounds are clear bilaterally. GI: Abdomen is non-distended, Bowel sounds present X 4 quads. : No signs and/or symptoms were reported regarding the genitourinary system. EENT: No signs and/or symptoms were reported regarding the EENT system. Derm: Skin is intact, Skin is pink, warm \T\ dry. normal. Musculoskeletal: Circulation, motion, and sensation intact. Range of motion: intact in all extremities. 20:07 Reassessment: attempted call report to [facility], was sent to multiple people al and then to voicemail. 20:08 Reassessment: attempted to give report to [facility], states the nurse is stuck al in another patients room but will give this nurse a call back within 30 minutes. notified community health educator. 20:20 Reassessment: Patient appears in no apparent distress at this time. Patient and/or al5 family updated on plan of care and expected duration. Pain level reassessed. Patient is alert, oriented x 3, equal unlabored respirations, skin warm/dry/pink. gave report to TRUNG Tapia at [facility]. headache subsided. 20:47 Reassessment: gave report to [facility]. al5 Vital Signs: 14:21 BP 131 / 75; Pulse 87; Resp 17; Temp 97.9; Pulse Ox 100% on R/A; Weight 69.4 kg; Height af3 5 ft. 3 in. ; Pain 0/10; 15:42 BP 142 / 71; Pulse 88; Resp 16; Pulse Ox 97% on R/A; dd2 17:30 BP 159 / 68 Supine; Pulse 95; hb 17:48 BP 159 / 68 Supine; Pulse 95; Resp 17; Pulse Ox 100% ; dd2 17:48 BP 170 / 82 Sitting; Pulse 97; Resp 17; Pulse Ox 100% on R/A; dd2 17:48 BP 148 / 86 Standing; Pulse 96; Resp 17; Pulse Ox 100% ; dd2 19:00 BP 162 / 81; Pulse 85; Resp 18; Pulse Ox 99% on R/A; al5 19:40 BP 175 / 81; Pulse 82; Resp 17; Pulse Ox 99% on R/A; al5 20:00 BP 147 / 87; Pulse 85; Resp 16; Pulse Ox 98% on R/A; al5 14:21 Body Mass Index 27.10 (69.40 kg, 160.02 cm) af3 14:21 Pain Scale: Adult af3 ED Course: 14:18 Patient arrived in ED. eb 14:21 Ye Terrell PA is PHCP. cp 14:21 Anthony Logan MD is Attending Physician. cp 14:23 Triage completed. af3 14:23 Arm band placed on. af3 15:02 XRAY Chest (1 view) In Process Unspecified. EDMS 15:18 Nuzhat Harrison, RN is Primary Nurse. hb 15:18 COVID-19 Ag + Flu A+B Ag Sent. hb 15:18 Initial lab(s) drawn, by me, sent to lab. Maintain EMS IV. Dressing intact. Good blood hb return noted. Site clean \T\ dry. Gauge \T\ site: 20g RAC. Flushed with 10 mL NS. 17:06 CT Head Brain wo Cont In Process Unspecified. EDMS 17:09 CT Abd/Pelvis - IV Contrast Only In Process Unspecified. EDMS 17:21 EKG done, by ED staff, reviewed by Ye ORNELAS. hb 19:09 Patient has correct armband on for positive identification. Bed in low position. Call al5 light in reach. Side rails up X2. 19:10 No provider procedures requiring assistance completed. al5 19:16 Initiated transfer with Milagros at [facility]. rv1 19:47 Doc to Doc with Hospitalist at [facility]. rv1 19:[address] Payan to [facility] Rm [id number]. rv1 20:15 [facility] to transfer. ETA 15 mins. rv1 20:20 Provided Education on: need for transfer. al5 20:48 Patient transferred, IV remains in place. al5 Administered Medications: 15:18 Drug: Ondansetron IVP 4 mg IVP once; over 2 minutes Route: IVP; Site: right antecubital;hb 17:49 Follow up: Response: No adverse reaction hb 15:18 Drug: Famotidine IVP 20 mg IVP once; dilute with 10 mL 0.9% NaCl; give over 2 minutes hb Route: IVP; Site: right antecubital; 17:49 Follow up: Response: No adverse reaction hb 15:18 Drug: NS 0.9% IV 500 ml 500 ml IV at 1 bolus once; to be given as a bolus over 60 hb minutes Volume: 500 ml; Route: IV; Rate: 1 bolus; Site: right antecubital; 15:45 Follow up: Response: No adverse reaction; IV Status: Completed infusion; IV Intake: hb 500ml 18:27 Drug: Meclizine PO 25 mg PO once Route: PO; hb 19:28 Follow up: Response: No adverse reaction al5 18:27 Drug: NS 0.9% IV 500 ml 500 ml IV at 100 ml/hr once Volume: 500 ml; Route: IV; Rate: hb 100 ml/hr; Site: right antecubital; 19:28 Follow up: Response: No adverse reaction; IV Status: Completed infusion; IV Intake: al5 500ml 19:26 Drug: Rocephin IV 1 grams IV at calculated rate once; Given slow IV push per pharmacy al5 instructions Route: IV; Rate: calculated rate; Site: right antecubital; 20:22 Follow up: Response: No adverse reaction; IV Status: Completed infusion; IV Intake: [id number] 19:26 Drug: Acetaminophen PO 1000 mg PO once Route: PO; al5 20:22 Follow up: Response: No adverse reaction; Pain is decreased al5 Medication: 19:10 VIS not applicable for this client. al5 Intake: 15:45 IV: 500ml; Total: 500ml. hb 19:28 IV: 500ml; Total: 1000ml. al5 20:22 IV: 50ml; Total: 1050ml. al5 Outcome: 19:24 ER care complete, transfer ordered by MD. jason 20:48 Transferred by ground EMS EMS. to [facility] [place], al5 20:48 Condition: stable 20:48 Instructed on the need for transfer, 21:09 Patient left the ED. al5 Signatures: Dispatcher [employer] EDVA Ye Terrell PA-C PA-C cp Baxter, Heather RN RN Joyce Leija Rebecca rv1 Kamila Sheldon RN RN al5 Felicia Babcock RN RN af3 ELISHA LEHMAN RN RN dd2
[2025-04-28 04:14] VITALS: TEMP 97.9
[2025-04-28 04:35] VITALS: BP 147/87; O2SAT 98
== END 2025-04-27 21:09 | disposition short-term general hospital (02) ==
LOC: ER 14:17
DX: N20.1 Calculus of ureter (principal); E86.9 Volume depletion, unspecified; Z11.52 Encounter for screening for COVID-19
CPT/HCPCS: 96365; 96361; 93005; 87088; 85025; 81001; 87086; 80048; 36415; 83735; 85610; 80076; 84484; 83880; 70450; 74177; 71045; 96375; 99285; 87428; Q9967; J8597; J2405; J7040 ×2; J0696